=== PATIENT | female | born 1950 | race Caucasian/White ===

== ENCOUNTER 2018-02-17 17:34 | Emergency (ER) | payer MEDICARE, OTHER ==
[~2018-02-17] VITALS: Ht 167.6 cm; Wt 77.0 kg
[2018-02-17 17:52] VITALS: BP 135/64; PULSE 85; RESP 15; TEMP 98.2; O2SAT 97
--- NOTE | 2018-02-17 20:23 | PD ---
HPI Chief Complaint: GI Complaint Time Seen by Provider: 20:08 Travel History International Travel<30 days: No Contact w/Intl Traveler<30days: No Traveled to known affect area: No History of Present Illness HPI This is a 67-year-old female with history of diabetes, hypertension, hyperlipidemia, depression and anxiety. She presents for evaluation of constipation. She reports over the past few weeks she has been having small pebbly stools. She discussed this with her primary care physician 10 days ago who recommended increased exercise, fluid intake and [id number] stool softeners. She did not try using anything [id number] but she reports that over the past 10 days she has not had any bowel movements. She called her primary care physician and was referred here. She has been passing stool. She reports that she feels perfectly fine. She denies abdominal pain, nausea or vomiting, fevers or chills, night sweats, recent weight loss. She denies any recent medication changes. She is not on any opiate medications. She reports that she had a colonoscopy 5 years ago which was normal. She has no other complaints at this time. [facility] Social History Alcohol Use: No Tobacco Use: No Allergies-Medications (Allergen,Severity, Reaction): Coded Allergies: Tetracyclines (Verified Allergy, Severe, RASH , 02/17/18) Reported Meds & Prescriptions Reported Meds & Active Scripts Active Colace (Docusate Sodium) 100 Mg Capsule 100 Mg PO BID Magnesium Citrate Liq (Magnesium Citrate) 300 Ml Liq 300 Ml PO DIRECTED 1 Days Review of Systems Except as stated in HPI: all other systems reviewed are Neg Physical Exam Narrative GENERAL: Pleasant well-developed well-nourished female in no acute distress vital signs reviewed. SKIN: Warm and dry. HEAD: Atraumatic. Normocephalic. EYES: Pupils equal and round. No scleral icterus. No injection or drainage. ENT: No nasal bleeding or discharge. Mucous membranes pink and moist. NECK: Trachea midline. No JVD. CARDIOVASCULAR: Regular rate and rhythm. No murmur appreciated. RESPIRATORY: No accessory muscle use. Clear to auscultation. Breath sounds equal bilaterally. GASTROINTESTINAL: Abdomen soft, non-tender, nondistended. Bowel sounds audible in all 4 quadrants. Rectal examination reveals dried stool in the rectal vault which was digitally broken up. hepatic and splenic margins not palpable. MUSCULOSKELETAL: No obvious deformities. No clubbing. No cyanosis. No edema. NEUROLOGICAL: Awake and alert. No obvious cranial nerve deficits. Motor grossly within normal limits. Normal speech. Data Data Last Documented VS Vital Signs Date Time Temp Pulse Resp B/P (MAP) Pulse Ox O2 Delivery O2 Flow Rate FiO2 02/17/18 17:52 98.2 85 15 135/64 (87) 97 Orders Orders Fleets Enema PRN (02/17/18 20:18) Fleets Enema (Adult) (Fleets Enema (Adul (02/17/18 21:15) Ed Discharge Order (02/17/18 22:06) [facility] Medical Decision Making Medical Screen Exam Complete: Yes Emergency Medical Condition: Yes Medical Record Reviewed: Yes Differential Diagnosis Constipation, fecal impaction, mass, obstruction Narrative Course 67-year-old female who reports constipation for the past several days with no other symptoms. She reports that she feels fine. Her abdomen is soft and nontender. She has no clinical evidence of bowel obstruction. Reassuringly she reports that she had a normal colonoscopy 5 years ago with no evidence of polyp or malignancy. On examination she has some fecal impaction which was digitally broken up. Plan is to write her an enema here. Upon reexamination the patient reports that she had a large bowel movement and feels improved. She will be discharged with a prescription for dose of magnesium citrate as well as a several day supply of Colace. Recommended follow -up with primary care physician and gastroenterology referral, return for any acutely new or worsening symptoms. Diagnosis Primary Impression: Constipation Additional Impression: Fecal impaction Referrals: Damage Assessor Additional Instructions: Medication as prescribed. Increase fiber intake as well as fluid intake, increase aerobic exercise. Follow-up with a master tax advisor. Return for any acutely new or worsening symptoms such as abdominal pain, intractable nausea and vomiting, fevers. Med/Other Pt SpecificInfo: Prescription(s) given Scripts Docusate Sodium (Colace) 100 Mg Capsule 100 MG PO BID for Prevent Constipation, #60 CAP 0 Refills Prov: Sonia Rodríguez MD 02/17/18 Magnesium Citrate Liq (Magnesium Citrate Liq) 300 Ml Liq 300 ML PO DIRECTED for 1 Day, BOTTLE 0 Refills Prov: oSnia Rodríguez MD 3/29/18 Disposition: 01 DISCHARGE HOME Condition: Stable Natanael,Damon P. PA Feb 17, 2018 20:23
[2018-02-17] MEDS ORDERED: SOD PHOSPHATE/SOD BIPHOSPHATE (ADULT) ENEMA 133ML RECTAL ONE (21:15)
[2018-02-17] MEDS ORDERED: MAGNSOL2 PO (22:05)
[2018-02-17] MEDS ORDERED: COLA100C5 PO (22:05)
[2018-02-17 22:52] VITALS: BP 127/74; PULSE 78; RESP 18; O2SAT 99
== END 2018-02-17 22:53 | disposition home or self-care (01) ==
LOC: NEPD 17:34
DX: K59.00 Constipation, unspecified (principal); E11.9 Type 2 diabetes mellitus without complications; I10 Essential (primary) hypertension; E78.5 Hyperlipidemia, unspecified; F32.9 Major depressive disorder, single episode, unspecified; F41.9 Anxiety disorder, unspecified
CPT/HCPCS: 99284

== ENCOUNTER 2018-05-30 17:03 | Inpatient (IN) ==
--- NOTE | 2018-05-30 17:33 | ED ---
HPI General Chief Complaint: Psychiatric Symptoms Stated Complaint: Psych Eval / SDPD Time Seen by Provider: 05/30/18 17:24 History of Present Illness HPI Narrative: Patient comes emergency department under Lombardi act by police reports suicidal ideations. Patient admits to having thoughts of wanting to kill herself. States that she was going to do by stabbing herself in the stomach with a knife. Patient denies any history of previous suicide attempts. Patient denies any medical complaints at this time. There are no modifying factors. Denies any chest pain, shortness of breath, loss change of bowel bladder, or fevers. Related Data Home Medications Medication Instructions Recorded Confirmed Crestor 20 mg PO HS 05/24/18 05/27/18 Ditropan XL 5 mg PO BID 05/24/18 05/27/18 Glucophage 500 mg PO DAILY 05/24/18 05/27/18 Lopressor 12.5 mg PO BID 05/24/18 05/27/18 Wellbutrin XL 300 mg PO DAILY 05/24/18 05/27/18 Zoloft 50 mg PO DAILY 05/24/18 05/27/18 hydroxyzine HCl 10 mg PO BID PRN 05/24/18 05/27/18 Allergies Allergy/AdvReac Type Severity Reaction Status Date / Time Tetracyclines Allergy Severe RASH Verified 02/17/18 17:52 Review of Systems Except as stated in HPI: all other systems reviewed are negative PMFSH Social History Social History Substance History: No History of Abuse Second Hand Smoke Exposure: No Smoking Status: Former smoker Tobacco Type: Cigarettes How Often Do You Have a Drink Containing Alcohol: Monthly or less Recent Travel in [facility] within the Last 8 Weeks: No Recent Out of Country Travel within the Last 8 Weeks: No Exam Narrative Exam Narrative: GENERAL: Well-developed, overly nourished, in no acute distress , and non-ill appearing. SKIN: Focused skin assessment warm and dry. HEAD: Atraumatic. Normocephalic. EYES: Pupils equal and round. EOMI. No scleral icterus. No injection or drainage. ENT: No nasal bleeding or discharge. Mucous membranes pink and moist. NECK: Trachea midline. Supple. No nuclear rigidity. CARDIOVASCULAR: Regular rate and rhythm. No murmur appreciated. RESPIRATORY: No accessory muscle use. No respiratory distress. Clear to auscultation. Breath sounds equal bilaterally. MUSCULOSKELETAL: No obvious deformities. No clubbing. No cyanosis. No edema. Full range of motion. NEUROLOGICAL: Awake and alert. No obvious cranial nerve deficits. Motor grossly within normal limits. Normal speech. PSYCHIATRIC: Appropriate mood and affect; insight and judgment normal. Course Initial Documented Vital Signs Temperature 97.7 F 05/30/18 17:13 Pulse Rate 103 H 05/30/18 17:13 Respiratory Rate 18 05/30/18 17:13 Blood Pressure 138/89 05/30/18 17:13 Pulse Oximetry 97 05/30/18 17:13 Last Documented Vital Signs Temperature 97.7 F 05/30/18 17:57 Pulse Rate 103 H 05/30/18 17:57 Respiratory Rate 17 05/30/18 17:57 Blood Pressure 138/89 05/30/18 17:13 Pulse Oximetry 97 05/30/18 17:57 Sign Out Sign Out Data: Patient Sign Out occurred on 05/30/18 at 19:01. Patient's care was discussed, and care was transferred from NUVIA Marin to NUVIA John. Sign Out Comment: Patient signed out to Alexander Santoyo are pending labs Last updated by Wali Root PA at 05/30/18 18:59 Post-Handoff Eval: See previous providers notes for complete history of present illness. I was asked to follow-up in this patient's lab work for medical clearance for psychiatric evaluation. Her lab work is unremarkable. She is medically cleared for psychiatric disposition. Medical Decision Making Lab Data Result diagrams: 05/30/18 17:17 05/30/18 17:17 Lab Results 05/30/18 05/30/18 05/30/18 Range/Units 17:17 17:17 17:17 WBC 8.5 (4.0-11.0) th/mm3 RBC 5.05 (4.00-5.30) mil/mm3 Hgb 14.7 (11.6-15.3) gm/dL Hct 43.1 (35.0-46.0) % MCV 85.4 (80.0-100.0) fL MCH 29.2 (27.0-34.0) pg MCHC 34.2 (32.0-36.0) % RDW 13.8 (11.6-17.2) % Plt Count 321 (150-450) th/mm3 MPV 7.8 (7.0-11.0) fL Neut % (Auto) 66.9 (16.0-70.0) % Lymph % (Auto) 22.7 (9.0-44.0) % [place] % (Auto) 7.0 (0.0-8.0) % Eos % (Auto) 2.8 (0.0-4.0) % Baso % (Auto) 0.6 (0.0-2.0) % Neut # (Auto) 5.7 (1.8-7.7) th/mm3 Lymph # (Auto) 1.9 (1.0-4.8) th/mm3 [place] # (Auto) 0.6 (0.0-0.9) th/mm3 Eos # (Auto) 0.2 (0.0-0.4) th/mm3 Baso # (Auto) 0.1 (0.0-0.2) th/mm3 WBC Differential . Differential Comment Auto diff final Sodium 137 (136-145) meq/L Potassium 4.0 (3.5-5.1) meq/L Chloride 104 (98-107) meq/L Carbon Dioxide 19.6 L (21.0-32.0) meq/L Anion Gap 13 (5-15) meq/L BUN 17 (7-18) mg/dL Creatinine 0.95 (0.50-1.00) mg/dL Estimated GFR 58 L (>89) mL/min Random Glucose 113 H (74-106) mg/dL Calcium 9.8 (8.5-10.1) mg/dL Total Bilirubin 0.8 (0.2-1.0) mg/dL AST 14 L (15-37) U/L ALT 22 (10-53) U/L Alkaline Phosphatase 101 (45-117) U/L Total Protein 8.1 (6.4-8.2) g/dL Albumin 4.3 (3.4-5.0) g/dL TSH 2.010 (0.358-3.740) uIU/mL Salicylates Less than 1.7 L (2.8-20.0) mg/dL Acetaminophen Less than 2.0 L (10.0-30.0) mcg/mL Serum Alcohol Less than 3 (0-5) mg/dL Discharge Plan Discharge Disposition Patient Disposition: 30 Still Patient Discharge Condition Condition: Stable Discharge Details Discharge Problem: Medical clearance for psychiatric admission Physicians Team ED Provider: Beto Helms ED Midlevel Provider: Damon Santoyo Primary Care Provider: UNKNOWN, Rxs /Orders / Referrals /Forms Prescriptions: No Action Glucophage 500 mg PO DAILY RF: 0 Lopressor 12.5 mg PO BID RF: 0 Zoloft 50 mg PO DAILY RF: 0 Ditropan XL 5 mg PO BID RF: 0 Crestor 20 mg PO HS RF: 0 Wellbutrin XL 300 mg PO DAILY RF: 0 hydroxyzine HCl 10 mg PO BID PRN (Reason: Anxiety) RF: 0 Discharge Interventions Interventions: Vital Signs Last Done: 05/30/18 17:57 Status ED Status: Medically Cleared
[2018-05-30 18:11] LABS: Baso # (Auto) 0.1 th/mm3 (0.0-0.2); Baso % (Auto) 0.6 % (0.0-2.0); Eos # (Auto) 0.2 th/mm3 (0.0-0.4); Eos % (Auto) 2.8 % (0.0-4.0); Hematocrit 43.1 % (35.0-46.0); Hemoglobin 14.7 gm/dL (11.6-15.3); Lymph # (Auto) 1.9 th/mm3 (1.0-4.8); Lymph % (Auto) 22.7 % (9.0-44.0); Mean Corpuscular HGB Conc 34.2 % (32.0-36.0); Mean Corpuscular Hemoglobin 29.2 pg (27.0-34.0); Mean Corpuscular Volume 85.4 fL (80.0-100.0); Mean Platelet Volume 7.8 fL (7.0-11.0); Mono # (Auto) 0.6 th/mm3 (0.0-0.9); Neut # (Auto) 5.7 th/mm3 (1.8-7.7); Neut % (Auto) 66.9 % (16.0-70.0); Platelet Count 321 th/mm3 (150-450); Red Blood Count 5.05 mil/mm3 (4.00-5.30); Red Cell Distribution Width 13.8 % (11.6-17.2); White Blood Count 8.5 th/mm3 (4.0-11.0)
[2018-05-30 18:26] LABS: Anion Gap 13 meq/L (5-15)
[2018-05-30 18:42] LABS: Alanine Aminotransferase 22 U/L (10-53); Albumin 4.3 g/dL (3.4-5.0); Alkaline Phosphatase 101 U/L (45-117); Aspartate Aminotransferase 14 U/L (15-37); Blood Urea Nitrogen 17 mg/dL (7-18); Calcium 9.8 mg/dL (8.5-10.1); Carbon Dioxide 19.6 meq/L (21.0-32.0); Chloride 104 meq/L (98-107); Glomerular Filtration Rate 58 mL/min (>89); Glucose,Random 113 mg/dL (74-106); Sodium 137 meq/L (136-145); Total Protein 8.1 g/dL (6.4-8.2)
[2018-05-31] MEDS ORDERED: LORazepam 1 MG Tablet PO PRN (15:34)
--- NOTE | 2018-05-31 16:35 | ED ---
HPI - Psych - General Source: family Mode of arrival: ambulatory Limitations: altered mental status - History of Present Illness MD complaint: altered mental status Onset (ago): week(s) Duration: intermittent, getting worse History of same: Yes (Per goddaughter patient had "psychotic episode many years ago".) Relieving factors: none Exacerbating factors: none Context: other (Unable to determine at this time) Associated psychiatric symptoms: suicidal ideation Associated symptoms: confusion Treatments prior to arrival: none If self harm: admits thoughts of self harm, has plan Details of plan: Stated that she was going to "stab herself in the abdomen". - General Chief Complaint: Psychiatric Symptoms Stated Complaint: Psych Eval / SDPD Time Seen by Provider: 05/30/18 17:24 - History of Present Illness HPI Narrative: This is a 68-year-old single, female who presents under Lombardi act to this facility for making suicidal statements. Patient is recently known to the psychiatric department at this facility as this is her third visit in approximately 1 week. Reviewed electronic medical records, labs, discuss case with staff. Evaluation was conducted in patient's room and J pod. She was found lying on the bed with the covers of her head. Patient was awake and alert however, she was either unwilling or unable to answer my questions. She did attempt to communicate briefly but appeared to have word salad. Staff report that she has communicated with them in and organized and logical manner earlier. A DCF worker who had been contacted on behalf of the patient by her landlord showed up at this facility. She states that when she examined the patient's apartment she found medication strewn all over the floor in the apartment was then complete disarray. She was able to identify the patient's goddaughter, came to use [phone], he was able to provide background information and agreed to act as the patient's healthcare surrogate. I contacted Rosa M Boyer who advised that the patient does have a history of schizophrenia and bipolar disorder. She reports that the recently began receiving phone calls from the patient complaining that her landlord had "turned off her water". 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 On both of her previous visits to this hospital she stated that she had a Risperdal prescription awaiting her at the pharmacy but, it seems she was unable to obtain them. She reported to staff that she "could not figure out how to get them". Her goddaughter additionally reported that the patient had a cerebral shunt placed many years ago was questioning if this could be the source of her altered mental status. I have ordered a CT and HEPAS consult. (Edna Hernandez) - Related Data Home Medications Medication Instructions Recorded Confirmed Crestor 20 mg PO HS 05/24/18 05/31/18 Ditropan XL 5 mg PO BID 05/24/18 05/31/18 Glucophage 500 mg PO DAILY 05/24/18 05/31/18 Lopressor 12.5 mg PO BID 05/24/18 05/31/18 Wellbutrin XL 300 mg PO DAILY 05/24/18 05/31/18 Zoloft 50 mg PO DAILY 05/24/18 05/31/18 hydroxyzine HCl 10 mg PO BID PRN 05/24/18 05/31/18 Allergies Allergy/AdvReac Type Severity Reaction Status Date / Time Tetracyclines Allergy Severe RASH Verified 02/17/18 17:52 PMFSH - History History Provided By: Patient, Family Member - Tobacco History Second Hand Smoke Exposure: No Tobacco Use In Past 30 Days: No Smoking Status: Former smoker Tobacco Type: Cigarettes - Alcohol History How Often Do You Have a Drink Containing Alcohol: Monthly or less - Substance Use History Substance History: No History of Abuse - Travel History Recent Travel in the [facility] Within the Last 8 Weeks: No Recent Travel Out of the Country Within the Last 8 Weeks: No - Immunization History Tetanus Immunization: <5 Years Psychiatric History - Psychiatric History Psychiatric Treatment History: History of Psychiatric Treatment, History of Hospitalization in a Psychiatric Facility, History of Community Mental Health Treatment History of Inpatient Treatment: Yes Firearms in Home: No - Legal History Unable to obtain. (Edna Hernandez) - Family Psychiatric History Unable to obtain. (Edna Hernandez) Mental Status Examination Appearance: Disheveled Consciousness: Obtunded Orientation: Person Motor Activity: Other (Lying in bed) Speech: Incoherent Language: Word salad Fund of Knowledge: Poor Attention and Concentration: Inadequate Memory: Impaired Mood: Anxious Affect: Anxious Thought Process & Associations: Word salad Thought Content: Other (Unable to determine) Hallucination Type: Other (Unable to determine) Delusion Type: Other (Unable to determine) Suicidal Ideation: Yes (Per Lombardi act) Suicidal Plan: Yes (Per Lombardi act patient stated with stab her self) Suicidal Intention: No Homicidal Ideation: No Homicidal Plan: No Homicidal Intention: No Insight: Poor Judgment: Poor Initial Documented Vital Signs Temperature 97.7 F 05/30/18 17:13 Pulse Rate 103 H 05/30/18 17:13 Respiratory Rate 18 05/30/18 17:13 Blood Pressure 138/89 05/30/18 17:13 Pulse Oximetry 97 05/30/18 17:13 Last Documented Vital Signs Temperature 98.3 F 05/31/18 06:09 Pulse Rate 68 05/31/18 10:00 Respiratory Rate 20 05/31/18 10:00 Blood Pressure 116/72 05/31/18 10:00 Pulse Oximetry 98 05/31/18 10:00 MDM - Psych - Diagnosis (1) Unspecified psychosis Status: Acute - Lab Data Result diagrams: 05/30/18 17:17 05/30/18 17:17 - MDM Narrative Medical decision making narrative: Given that this is the third time in a week patient has presented to this facility for reported suicidal ideation and given her psychiatric history she will be admitted to the 2500 unit for further evaluation and treatment. Staff reported that patient was interacting with them appropriately and speaking in clear, logical, and organized sentences. However, when I interviewed her she did appear to have some word salad disorganization and to be fairly confused. That was at approximately 3 PM in the afternoon. Additionally, I have ordered a CT to evaluate if patient cerebral shunt may be blocked. She will be admitted to rule out psychosis due to schizophrenia versus dementia versus hydrocephalus. Received consent from her granddaughter to act as her surrogate. I have received consents for her medications. (Edna Hernandez) - Lab Data Lab Results 05/30/18 05/30/18 05/30/18 Range/Units 17:17 17:17 17:17 WBC 8.5 (4.0-11.0) th/mm3 RBC 5.05 (4.00-5.30) mil/mm3 Hgb 14.7 (11.6-15.3) gm/dL Hct 43.1 (35.0-46.0) % MCV 85.4 (80.0-100.0) fL MCH 29.2 (27.0-34.0) pg MCHC 34.2 (32.0-36.0) % RDW 13.8 (11.6-17.2) % Plt Count 321 (150-450) th/mm3 MPV 7.8 (7.0-11.0) fL Neut % (Auto) 66.9 (16.0-70.0) % Lymph % (Auto) 22.7 (9.0-44.0) % [place] % (Auto) 7.0 (0.0-8.0) % Eos % (Auto) 2.8 (0.0-4.0) % Baso % (Auto) 0.6 (0.0-2.0) % Neut # (Auto) 5.7 (1.8-7.7) th/mm3 Lymph # (Auto) 1.9 (1.0-4.8) th/mm3 [place] # (Auto) 0.6 (0.0-0.9) th/mm3 Eos # (Auto) 0.2 (0.0-0.4) th/mm3 Baso # (Auto) 0.1 (0.0-0.2) th/mm3 WBC Differential . Differential Comment Auto diff final Sodium 137 (136-145) meq/L Potassium 4.0 (3.5-5.1) meq/L Chloride 104 (98-107) meq/L Carbon Dioxide 19.6 L (21.0-32.0) meq/L Anion Gap 13 (5-15) meq/L BUN 17 (7-18) mg/dL Creatinine 0.95 (0.50-1.00) mg/dL Estimated GFR 58 L (>89) mL/min POC Glucose (68-110) mg/dl Random Glucose 113 H (74-106) mg/dL Calcium 9.8 (8.5-10.1) mg/dL Total Bilirubin 0.8 (0.2-1.0) mg/dL AST 14 L (15-37) U/L ALT 22 (10-53) U/L Alkaline Phosphatase 101 (45-117) U/L Total Protein 8.1 (6.4-8.2) g/dL Albumin 4.3 (3.4-5.0) g/dL TSH 2.010 (0.358-3.740) uIU/mL Salicylates Less than 1.7 L (2.8-20.0) mg/dL Acetaminophen Less than 2.0 L (10.0-30.0) mcg/mL Serum Alcohol Less than 3 (0-5) mg/dL 05/30/18 05/31/18 Range/Units 21:47 15:34 WBC (4.0-11.0) th/mm3 RBC (4.00-5.30) mil/mm3 Hgb (11.6-15.3) gm/dL Hct (35.0-46.0) % MCV (80.0-100.0) fL MCH (27.0-34.0) pg MCHC (32.0-36.0) % RDW (11.6-17.2) % Plt Count (150-450) th/mm3 MPV (7.0-11.0) fL Neut % (Auto) (16.0-70.0) % Lymph % (Auto) (9.0-44.0) % [place] % (Auto) (0.0-8.0) % Eos % (Auto) (0.0-4.0) % Baso % (Auto) (0.0-2.0) % Neut # (Auto) (1.8-7.7) th/mm3 Lymph # (Auto) (1.0-4.8) th/mm3 [place] # (Auto) (0.0-0.9) th/mm3 Eos # (Auto) (0.0-0.4) th/mm3 Baso # (Auto) (0.0-0.2) th/mm3 WBC Differential Differential Comment Sodium (136-145) meq/L Potassium (3.5-5.1) meq/L Chloride (98-107) meq/L Carbon Dioxide (21.0-32.0) meq/L Anion Gap (5-15) meq/L BUN (7-18) mg/dL Creatinine (0.50-1.00) mg/dL Estimated GFR (>89) mL/min POC Glucose 99 84 (68-110) mg/dl Random Glucose (74-106) mg/dL Calcium (8.5-10.1) mg/dL Total Bilirubin (0.2-1.0) mg/dL AST (15-37) U/L ALT (10-53) U/L Alkaline Phosphatase (45-117) U/L Total Protein (6.4-8.2) g/dL Albumin (3.4-5.0) g/dL TSH (0.358-3.740) uIU/mL Salicylates (2.8-20.0) mg/dL Acetaminophen (10.0-30.0) mcg/mL Serum Alcohol (0-5) mg/dL
--- NOTE | 2018-05-31 17:30 | CT ---
EXAM DATE: 05/31/2018 5:22 PM EDT AGE/SEX: 68 years / Female INDICATIONS: Altered mental status; depression. Possible shunt malfunction; evaluate for hydrocepha chris. CLINICAL DATA: This is the patient's initial encounter. Patient reports that signs and symptoms have been present for 1 day and indicates a pain score of 0/10. MEDICAL/SURGICAL HISTORY: None. . AV shunt RADIATION DOSE: 56.35 CTDI (mGy) COMPARISON: No prior exams available for comparison. TECHNIQUE: CT of the head without contrast. Using automated exposure control and adjustment of the mA and/or kV according to patient size, radiation dose was kept as low as reasonably achievable to ob tain optimal diagnostic quality images. DICOM format image data is available electronically for revi ew and comparison. FINDINGS: Cerebrum: Mild ventricular prominence. A ventricular shunt enters from the right with tip in the lef t lateral ventricle. Periventricular areas of diminished attenuation. Probable punctate old lacunar t ype infarcts in the basal ganglia bilaterally. No evidence of midline shift, mass lesion, hemorrhage or acute infarction. No extraaxial fluid collections are seen. Posterior Fossa: The cerebellum and brainstem are intact. The 4th ventricle is midline. The cerebe llopontine angle is unremarkable. Extracranial: The visualized portion of the orbits is intact. Skull: The calvaria is intact. No evidence of skull fracture. CONCLUSION: 1. Right-sided LOGISTICS TE[employer] LEAD shunt with the tip in the left lateral ventricle. Mild ventricular prominence. I h ave no priors to assess for interval change, however. 2. Chronic changes with moderately severe periventricular small vessel ischemic demyelination. Proba ble punctate old lacunar type infarcts in the basal ganglia bilaterally. Electronically signed by: Rigo Shultz MD 05/31/2018 5:29 PM EDT
[2018-05-31] MEDS ORDERED: CRESTOR 20 MG PO SCH (21:00)
[2018-05-31] MEDS ORDERED: METOPROLOL TARTRATE PO SCH (21:00)
[2018-05-31] MEDS ORDERED: DITROPAN 5 MG PO SCH (21:00)
[2018-05-31] MEDS: Metoprolol Tartrate 25 MG Tablet PO SCH (23:37)
[2018-06-01] MEDS: Tolterodine Tartrate LA 2 MG Capsule PO SCH ×2 (03:51→10:57)
[2018-06-01 07:15] LABS: Calcium 9.6 mg/dL (8.5-10.1); Carbon Dioxide 20.9 meq/L (21.0-32.0); Potassium 3.8 meq/L (3.5-5.1)
[2018-06-01 07:18] LABS: Chol/HDL Ratio 2.98 Ratio; HDL Cholesterol 46.5 mg/dL (40.0-60.0)
[2018-06-01] MEDS: Metoprolol Tartrate 25 MG Tablet PO SCH (10:56)
[2018-06-01] MEDS: Sertraline 50 MG Tablet PO SCH (10:56)
[2018-06-01] MEDS: buPROPion 150 MG 12 HR Tablet PO SCH (10:57)
--- NOTE | 2018-06-01 14:06 | ECG ---
Date Performed: 06/01/2018 Time Performed: 10:15:08 PTAGE: 68 years EKG: Sinus rhythm NONSPECIFIC T-WAVE ABNORMALITY BORDERLINE ECG NO PREVIOUS TRACING DOCTOR: Juan Luis Williamson Interpretating Date/Time 06/01/2018 14:05:10
--- NOTE | 2018-06-01 14:48 | P.CON ---
History of Present Illness Service: 06/01/18 Consult date: 05/31/18 Requesting Physician: Edna Hernandez Reason for Consult: AMS, Hx cerebral shunt, DM, HTN Primary Care Provider: UNKNOWN History of Present Illness: 68-year-old female with past medical history significant for hypertension, hyperlipidemia, diabetes mellitus, history of FOOD SERVICE LEAD shunt placement, anxiety and depression who presents to the emergency department on 05/30 under [place] act. Apparently this is patient's third visit in the past week, DCF worker who examined patient's apartment found this in disarray along with multiple medications on the floor. During patient's previous hospital visit she was prescribed Risperdal which she was unable to obtain from this pharmacy per medical records, patient reported that she could not figure out how to get there. Patient's goddaughter who is serving as healthcare surrogate reports patient has a history of FOOD SERVICE LEAD shunt placement and is questioning if this could be the possible cause of her altered mental status. [facility] consulted to assist with further evaluation of altered mental status, hypertension, and diabetes. Patient is seen and examined in her room, able to ambulate with steady gait and without assistive devices. She is awake, alert, oriented to self, place, time, and current president. She denies any headache, dizziness, lightheadedness, changes in vision, dysuria, or incontinence. Patient also denies any recent fevers, chills, nausea, vomiting, diarrhea, constipation, cough, shortness of breath, or chest pain. Patient does make conversation, but this does not seem to makes make much sense. Reports that she is "fine and everyone knows what is going on" [facility] - History History Provided By: Medical Record - Medical History Medical History: Medical History (Last Updated 06/01/18 @ 15:00 by Payton Hillman) Anxiety Depression Diabetes mellitus HLD (hyperlipidemia) HTN (hypertension) - Surgical History Surgical History: Surgical History (Last Updated 06/01/18 @ 14:58 by Payton Hillman) Hx of tonsillectomy S/P FOOD SERVICE LEAD shunt - Tobacco History Second Hand Smoke Exposure: No Tobacco Use In Past 30 Days: No Smoking Status: Refused to answer Tobacco Type: Cigarettes - Alcohol History How Often Do You Have a Drink Containing Alcohol: Unable to Obtain - Substance Use Type Other Type: tobacco use/former smoker Alcohol Frequency: monthly or less - Travel History Recent Travel in the [facility] Within the Last 8 Weeks: No Recent Travel Out of the Country Within the Last 8 Weeks: No - Immunization History Tetanus Immunization: <5 Years Hx Influenza Vaccine This Season: Unable to Assess Medications and Allergies Active Medications: Active Medications Atorvastatin Calcium (Lipitor) 40 mg PO HS [facility] Last Admin: 05/31/18 23:38 Dose: 40 mg Bupropion HCl (Wellbutrin Sr) 150 mg PO BID [facility] Last Admin: 06/01/18 10:57 Dose: 150 mg Diphenhydramine HCl (Benadryl) 50 mg PO HS PRN PRN Reason: INSOMNIA Lorazepam (Ativan) 0.5 mg PO Q12HR PRN PRN Reason: ANXIETY AND/OR AGITATION Lorazepam (Ativan Inj) 0.5 mg IM Q12H PRN PRN Reason: MODERATE TO SEVERE ANXIETY Metformin HCl (Glucophage) 500 mg PO DAILY [facility] Last Admin: 06/01/18 10:58 Dose: 500 mg Metoprolol Tartrate (Lopressor) 12.5 mg PO BID [facility] Last Admin: 06/01/18 10:56 Dose: 12.5 mg Miscellaneous (Pill Splitter) 1 each OTHER PRN PRN PRN Reason: SEE LABEL COMMENTS Risperidone (Risperdal) 0.5 mg PO BID [facility] Last Admin: 06/01/18 13:43 Dose: 0.5 mg Sertraline HCl (Zoloft) 50 mg PO DAILY [facility] Last Admin: 06/01/18 10:56 Dose: 50 mg Tolterodine Tartrate (Detrol La) 2 mg PO BID [facility] Last Admin: 06/01/18 10:57 Dose: 2 mg Allergies Allergy/AdvReac Type Severity Reaction Status Date / Time Tetracyclines Allergy Severe RASH Verified 02/17/18 17:52 Home Medications Medication Instructions Recorded Confirmed Type Crestor 20 mg PO HS 05/24/18 05/31/18 History Ditropan XL 5 mg PO BID 05/24/18 05/31/18 History Glucophage 500 mg PO DAILY 05/24/18 05/31/18 History Lopressor 12.5 mg PO BID 05/24/18 05/31/18 History Wellbutrin XL 300 mg PO DAILY 05/24/18 05/31/18 History Zoloft 50 mg PO DAILY 05/24/18 05/31/18 History hydroxyzine HCl 10 mg PO BID PRN 05/24/18 05/31/18 History Physical Exam Vital signs: Vital Signs 05/31/18 19:00 06/01/18 03:02 06/01/18 06:00 Temperature 36.9 C 36.8 C Pulse Rate 71 74 Respiratory Rate 18 Blood Pressure 145/95 H 102/61 108/62 Pulse Oximetry 97 94 L 93 L Intake & Output 05/31/18 06/01/18 06/01/18 18:59 06:59 18:59 Weight 170 kg Other: Weight On Admission 170 kg Narrative: GENERAL: Elderly female, well developed, in no acute distress, resting in bed. SKIN: Warm and dry. HEAD: Atraumatic. Normocephalic. EYES: Pupils equal and round. No scleral icterus. No injection or drainage. ENT: No nasal bleeding or discharge. Mucous membranes pink and moist. NECK: Trachea midline. CARDIOVASCULAR: Regular rate and rhythm. RESPIRATORY: No accessory muscle use. Clear to auscultation. Breath sounds equal bilaterally. GASTROINTESTINAL: Abdomen soft, non-tender, nondistended. + bowel sounds. MUSCULOSKELETAL: Extremities without clubbing, cyanosis, or edema. No obvious deformities. NEUROLOGICAL: Awake and alert, oriented to self, place. No obvious cranial nerve deficits. Motor grossly within normal limits. Clear speech, few spoke words with ongoing scattered thoughts. PSYCHIATRIC: Questionable insight and judgment. Assessment and Plan - Plan 68-year-old female with past medical history significant for hypertension, hyperlipidemia, diabetes mellitus, history of FOOD SERVICE LEAD shunt placement, anxiety and depression who presents to the emergency department on 05/30 under [place] act. Patient has a history of FOOD SERVICE LEAD shunt placement and is questioning if this could be the possible cause of her altered mental status. [facility] consulted to assist with further evaluation of altered mental status, hypertension, and diabetes. AMS/confusion -Labs unremarkable, CBC and CMP stable, toxicology screen negative. - Head CT with right sided FOOD SERVICE LEAD shunt with the tip in the left lateral ventricle. Mild ventricular prominence with no priors to assess for changes. Chronic changes with moderately severe periventricular small vessel ischemic demyelination. Probable punctate old lacunar type infarcts in the basal ganglia bilaterally. - Check B12, folate, UA for possible possible source of AMS Hx DM Hx HTN HLD -Random blood sugars on lab work have been stable, pending hemoglobin A1c. Continue metformin 500 mg daily. -Continue Lopressor 12.5 mg twice daily -Continue Lipitor 40 mg at bedtime DVT prophylaxis-ambulation Thank you kindly for this consultation, will continue to follow along.
[2018-06-01 16:54] LABS: Hemoglobin A1c 6.4 % (4.3-6.0)
--- NOTE | 2018-06-01 17:54 | P.HPPSY ---
Provisional Diagnosis Admission Date: May 31, 2018 15:39 Lares I.: Major depressive disorder, recurrent episode, severe with psychotic features Competence Certification of Person's Competence To Provide Express and Informed Consent I have personally examined Elmira Good, a person being served at [facility] on, June 01, 2018 1742. Express and informed consent means consent voluntarily given in writing, by a competent person, after sufficient explanation and disclosure of the subject matter involved to enable the person to make a knowing and willful decision without any element of force, fraud, deceit, duress, or other form of constraint or coercion. This person is 18 years of age or older, is not now known to be incompetent to consent to treatment with a guardian advocate, and does not have a health care surrogate or proxy currently making medical treatment decisions. I have found this person to be one of the following: [] Competent to provide express and informed consent, as defined above, for voluntary admission to this facility and is competent to provide express and informed consent for treatment. He/she has the consistent capacity to make well reasoned, willful, and knowing decisions concerning his or her medical or mental health treatment. The person fully and consistently understands the purpose of the admission for examination/placement and is fully capable of personally exercising all rights assured [place]xxx] Incompetent to provide express and informed consent to voluntary admission , and this is incompetent to provide express and informed consent to treatment. The person must be transferred to involuntary status and a petition for a guardian advocate filed with the Circuit Court. [] Refusing to provide express and informed consent to voluntary admission but is competent to provide express and informed consent for treatment. The person must be discharged or transferred to involuntary status. Form shall be completed within 24 hours of a person's arrival at the receiving facility and filed in the clinical record of each person: 1. Admitted on a voluntary basis 2. Permitted to provide express and informed consent to his/her own treatment 3. Allowed to transfer from involuntary to voluntary status 4. Prior to permitting a person to consent to his or her own treatment after having been previously found incompetent to consent to treatment. History of Present Illness Capacity: Lacks capacity History of Present Illness: Patient is a 68-year-old woman, domiciled alone, with a past psychiatric history of depression and anxiety, schizophrenia as per collateral formation, unclear previous psychiatric admissions, denies any previous suicide attempts, who presented to the ED under [facility] for suicide ideations. As per chart patient had visited the ED in 3 separate occasions within 1 week span and recently had her brought in under [facility] after DCF worker have been [facility] had patient come into the hospital for evaluation. As per chart patient with history of schizophrenia/bipolar disorder , had not been able to parts picker her prescriptions at the pharmacy for risperidone as prescribed by her outpatient physician. Patient has history of cervical shunt, recent CT scan showed right CHIEF CRNA shunt, chronic changes with moderately severe periventricular small vessel ischemic demyelination, probable punctate old lacunar type infarcts in basal ganglia bilaterally. Patient was found sitting in hospital bed noted to be having difficulty with engaging interview noted to be distressed and paranoid. Patient states that after she had been seen in the ER she had planned to go to her psychiatrist but had a transportation which she had called her cousin stated that she did not feel well. Patient this time is alert and oriented 3, and states "whatever I say some negative, it heads me in the face". Patient also states that "negativity always follows me". Patient continues report feeling depressed as well as noted to be paranoid stating "I have been labeled", "just kill me, just kill me! " Patient was not able to tolerate further review at history had been limited due to patient's ongoing symptomatology. - Inpatient Certification I certify that the inpatient services were ordered in accordance with Medicare regulations governing the order. This includes certification that hospital inpatient services are reasonable and necessary and in the case of services not specified as inpatient-only under 42 CFR 419.22(n), that they are appropriately provided as inpatient services in accordance to with the 2-midnight benchmark under 43 CFR 412.3(e) I certify that inpatient psychiatric hospital services are medically necessary. Evaluation and treatment and/or diagnostic testing are expected to improve the patient's condition. The patient needs on a daily basis, active treatment furnished directly by or requiring the supervision of inpatient psychiatric facility personnel. Estimated Total Length of Stay (Days): 7 Plans for Post Hospital Care: Not yet determined Review of Systems All other systems reviewed negative except as stated in [facility] - History History Provided By: Medical Record - Medical History Medical History: Medical History (Last Updated 07/11/18 @ 15:00 by Payton Hillman) Anxiety Depression Diabetes mellitus HLD (hyperlipidemia) HTN (hypertension) - Surgical History Surgical History: Surgical History (Last Updated 06/01/18 @ 14:58 by Payton Hillman) Hx of tonsillectomy S/P CHIEF CRNA shunt - Tobacco History Second Hand Smoke Exposure: No Tobacco Use In Past 30 Days: No Smoking Status: Refused to answer Tobacco Type: Cigarettes - Alcohol History How Often Do You Have a Drink Containing Alcohol: Unable to Obtain - Substance Use Type Other Type: tobacco use/former smoker Route Used: Inhalation Alcohol Route Used: By Mouth Frequency: monthly or less - Travel History Recent Travel in the [place] Within the Last 8 Weeks: No Recent Travel Out of the Country Within the Last 8 Weeks: No - Immunization History Tetanus Immunization: <5 Years Hx Influenza Vaccine This Season: Unable to Assess Quality Measures - Psychiatric History Violence risk to others in the last 6 months: Low Violence risk to self in the last 6 months: Elevated due to current suicidal ideations - Substance Abuse History Drug or alcohol use in the past 12 months: Denies - Patient Strengths Patient's strengths (minimum of 2): Verbal and communicative Medications and Allergies Active Medications: Active Medications Atorvastatin Calcium (Lipitor) 40 mg PO HS [facility] Last Admin: 05/31/18 23:38 Dose: 40 mg Bupropion HCl (Wellbutrin Sr) 150 mg PO BID [facility] Last Admin: 06/01/18 10:57 Dose: 150 mg Diphenhydramine HCl (Benadryl) 50 mg PO HS PRN PRN Reason: INSOMNIA Lorazepam (Ativan) 0.5 mg PO Q12HR PRN PRN Reason: ANXIETY AND/OR AGITATION Lorazepam (Ativan Inj) 0.5 mg IM Q12H PRN PRN Reason: MODERATE TO SEVERE ANXIETY Metformin HCl (Glucophage) 500 mg PO DAILY [facility] Last Admin: 06/01/18 10:58 Dose: 500 mg Metoprolol Tartrate (Lopressor) 12.5 mg PO BID [facility] Last Admin: 06/01/18 10:56 Dose: 12.5 mg Miscellaneous (Pill Splitter) 1 each OTHER PRN PRN PRN Reason: SEE LABEL COMMENTS Risperidone (Risperdal) 0.5 mg PO BID [facility] Last Admin: 06/01/18 13:43 Dose: 0.5 mg Sertraline HCl (Zoloft) 50 mg PO DAILY [facility] Last Admin: 06/01/18 10:56 Dose: 50 mg Tolterodine Tartrate (Detrol La) 2 mg PO BID [facility] Last Admin: 06/01/18 10:57 Dose: 2 mg Allergies Allergy/AdvReac Type Severity Reaction Status Date / Time Tetracyclines Allergy Severe RASH Verified 02/17/18 17:52 Home Medications Medication Instructions Recorded Confirmed Type Crestor 20 mg PO HS 05/24/18 05/31/18 History Ditropan XL 5 mg PO BID 05/24/18 05/31/18 History Glucophage 500 mg PO DAILY 05/24/18 05/31/18 History Lopressor 12.5 mg PO BID 05/24/18 05/31/18 History Wellbutrin XL 300 mg PO DAILY 05/24/18 05/31/18 History Zoloft 50 mg PO DAILY 05/24/18 05/31/18 History hydroxyzine HCl 10 mg PO BID PRN 05/24/18 05/31/18 History Results - Labs CBC & Chem 7: 05/30/18 17:17 06/01/18 06:25 Labs: Laboratory Results - last 24 hr 06/01/18 06:25 Sodium 139 Potassium 3.8 Chloride 105 Carbon Dioxide 20.9 L Anion Gap 13 BUN 22 H Creatinine 0.83 Estimated GFR 68 L Random Glucose 75 Calcium 9.6 Triglycerides 107 Cholesterol 139 LDL Cholesterol, Calc 71 HDL Cholesterol 46.5 Cholesterol/HDL Ratio 2.98 Exam Vital signs: Vital Signs 05/31/18 19:00 06/01/18 03:02 06/01/18 06:00 Temperature 98.4 F 98.3 F Pulse Rate 71 74 Respiratory Rate 18 18 18 Blood Pressure 145/95 H 102/61 108/62 Pulse Oximetry 97 94 L 93 L Intake & Output 05/31/18 06/01/18 06/01/18 18:59 06:59 18:59 Weight 170 kg Other: Weight On Admission 170 kg Narrative: Patient not noted to be in acute distress, no gross motor abnormalities, no tremors or EPS, no noted psychomotor retardation or agitation Mental Status Examination Appearance: Disheveled Consciousness: Highly distractible Orientation: Person Motor Activity: Other (Lying in bed) Speech: Slow Language: Adequate Fund of Knowledge: Poor Attention and Concentration: Inadequate Memory: Impaired Mood: Anxious Affect: Sad, Anxious Thought Process & Associations: Disorganized (At times) Thought Content: Bizarre thinking, Delusional Hallucination Type: Auditory (Patient had a confirmed nor denied) Delusion Type: Paranoid, Other (Unable to determine) Suicidal Ideation: Yes Suicidal Plan: No Suicidal Intention: No Homicidal Ideation: No Homicidal Plan: No Homicidal Intention: No Insight: Poor Judgment: Poor Assessment and Plan - Assessment (1) Major depressive disorder Code(s): F32.9 - Major depressive disorder, single episode, unspecified Status : Acute - Plan Plan: Estimated LOS: [] days Patient is a 68-year-old woman who carries a diagnosis of depression and anxiety, schizophrenia as per collateral, with unclear previous psychiatric admissions, no previous suicide attempts, no substance use history, currently under the care of Dr. Barajas outpatient psychiatrist, who presented to the ED 3 separate times in 1 week and currently under [place] act for suicide ideations which patient at this time continues to endorse as well as paranoid delusions which patient this time requires inpatient psychiatric stabilization and for safety. Patient will restart risperidone at 0.5 mg p.o. twice daily, continue Wellbutrin 150 mg p.o. twice daily and sertraline 50 mg p.o. daily. Continue recommendations as per primary medical team, hospitalist input appreciated. Social work intervention for psychosocial assessment. Continue to monitor mood and behavior. Petition for involuntary hospitalization started, we will request healthcare surrogate and guardian advocate. Discharge planning in progress. Justification for Continued Inpatient Stay: At risk for decompensation at lower level of care. (1) Major depressive disorder Qualifiers: Major depression recurrence: recurrent Active/Remission status: currently active Major depression episode severity: severe Psychotic features: with psychotic features Qualified Code(s): F33.3 - Major depressive disorder, recurrent, severe with psychotic symptoms
[2018-06-02] MEDS: LORazepam 0.5 MG Tablet PO PRN (02:23)
[2018-06-02] MEDS: Tolterodine Tartrate LA 2 MG Capsule PO SCH ×2 (09:26→23:00)
[2018-06-02] MEDS: Sertraline 50 MG Tablet PO SCH (09:27)
[2018-06-02] MEDS: buPROPion 150 MG 12 HR Tablet PO SCH ×2 (09:27→22:59)
[2018-06-02] MEDS: Metoprolol Tartrate 25 MG Tablet PO SCH ×2 (09:30→23:00)
--- NOTE | 2018-06-02 14:25 | P.CONPSY ---
Provisional Diagnosis Admission Date: May 31, 2018 15:39 Rudyard I.: Major depressive disorder, recurrent episode, severe with psychotic features History of Present Illness Service: Psychiatry Primary Care Provider: UNKNOWN History of Present Illness: THe patient this time patient is a 68-year-old woman, domiciled alone , with a past psychiatric history of depression and anxiety, with no previous suicide attempts admitted in psychiatry under the care of Dr. Morse due to paranoia and perceptual disturbances. Consulted to me for second opinion. On my psychiatric evaluation I find a patient that is calm, superficially cooperative, reporting that she is feeling much better. Patient is unable to tell me what is the reason she is in the hospital. She seems to be a little bit disorganized, internally preoccupied and paranoid, but she denies suicidal and homicidal ideation, denies visual and auditory hallucinations. The patient seems to be quite disoriented. Oriented in person, but partially oriented in time and place. 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 - Tobacco History Second Hand Smoke Exposure: No Tobacco Use In Past 30 Days: No Smoking Status: Refused to answer Tobacco Type: Cigarettes - Alcohol History How Often Do You Have a Drink Containing Alcohol: Unable to Obtain - Substance Use Type Other Type: tobacco use/former smoker Route Used: Inhalation Alcohol Route Used: By Mouth Frequency: monthly or less - Travel History Recent Travel in the [facility] Within the Last 8 Weeks: No Recent Travel Out of the Country Within the Last 8 Weeks: No - Immunization History Tetanus Immunization: <5 Years Hx Influenza Vaccine This Season: Unable to Assess Medications and Allergies Active Medications: Active Medications Atorvastatin Calcium (Lipitor) 40 mg PO HS GINA Last Admin: 05/31/18 23:38 Dose: 40 mg Bupropion HCl (Wellbutrin Sr) 150 mg PO BID GINA Last Admin: 06/02/18 09:27 Dose: 150 mg Diphenhydramine HCl (Benadryl) 50 mg PO HS PRN PRN Reason: INSOMNIA Last Admin: 06/02/18 02:24 Dose: 50 mg Lorazepam (Ativan) 0.5 mg PO Q12HR PRN PRN Reason: ANXIETY AND/OR AGITATION Last Admin: 06/02/18 02:23 Dose: 0.5 mg Lorazepam (Ativan Inj) 0.5 mg IM Q12H PRN PRN Reason: MODERATE TO SEVERE ANXIETY Metformin HCl (Glucophage) 500 mg PO DAILY [facility] Last Admin: 06/02/18 09:28 Dose: 500 mg Metoprolol Tartrate (Lopressor) 12.5 mg PO BID [facility] Last Admin: 06/02/18 09:30 Dose: 12.5 mg Miscellaneous (Pill Splitter) 1 each OTHER PRN PRN PRN Reason: SEE LABEL COMMENTS Risperidone (Risperdal) 0.5 mg PO BID [facility] Last Admin: 06/02/18 09:27 Dose: 0.5 mg Sertraline HCl (Zoloft) 50 mg PO DAILY [facility] Last Admin: 06/02/18 09:27 Dose: 50 mg Tolterodine Tartrate (Detrol La) 2 mg PO BID [facility] Last Admin: 06/02/18 09:26 Dose: 2 mg Allergies Allergy/AdvReac Type Severity Reaction Status Date / Time Tetracyclines Allergy Severe RASH Verified 02/17/18 17:52 Home Medications Medication Instructions Recorded Confirmed Type Crestor 20 mg PO HS 05/24/18 05/31/18 History Ditropan XL 5 mg PO BID 05/24/18 05/31/18 History Glucophage 500 mg PO DAILY 05/24/18 05/31/18 History Lopressor 12.5 mg PO BID 05/24/18 05/31/18 History Wellbutrin XL 300 mg PO DAILY 05/24/18 05/31/18 History Zoloft 50 mg PO DAILY 05/24/18 05/31/18 History hydroxyzine HCl 10 mg PO BID PRN 05/24/18 05/31/18 History Exam Vital signs: Vital Signs 06/01/18 17:59 06/02/18 06:00 Temperature 97.3 F L 98.3 F Pulse Rate 94 H Respiratory Rate 16 18 Blood Pressure 130/61 110/60 Pulse Oximetry 97 96 Mental Status Examination Appearance: Disheveled Consciousness: Highly distractible Orientation: Person Motor Activity: Other (Lying in bed) Speech: Slow Language: Adequate Fund of Knowledge: Poor Attention and Concentration: Inadequate Memory: Impaired Mood: Anxious Affect: Sad, Anxious Thought Process & Associations: Disorganized (At times) Thought Content: Bizarre thinking, Delusional Hallucination Type: Auditory (Patient had a confirmed nor denied) Delusion Type: Paranoid, Other (Unable to determine) Suicidal Ideation: Yes Suicidal Plan: No Suicidal Intention: No Homicidal Ideation: No Homicidal Plan: No Homicidal Intention: No Insight: Poor Judgment: Poor Assessment and Plan - Assessment (1) Major depressive disorder Code(s): F32.9 - Major depressive disorder, single episode, unspecified Status : Acute - Plan Plan: Estimated LOS: [] days Patient is a 68-year-old woman who carries a diagnosis of depression and anxiety, schizophrenia as per collateral, with unclear previous psychiatric admissions, no previous suicide attempts, no substance use history, currently under the care of Dr. Barajas outpatient psychiatrist, who presented to the ED 3 separate times in 1 week and currently under Lombardi act for suicide ideations which patient at this time continues to endorse as well as paranoid delusions which patient this time requires inpatient psychiatric stabilization and for safety. Patient will restart risperidone at 0.5 mg p.o. twice daily, continue Wellbutrin 150 mg p.o. twice daily and sertraline 50 mg p.o. daily. Continue recommendations as per primary medical team, hospitalist input appreciated. Social work intervention for psychosocial assessment. Continue to monitor mood and behavior. Petition for involuntary hospitalization started, we will request healthcare surrogate and guardian advocate. Discharge planning in progress. I have seen and examined this patient, reviewed documentation, discussed personally with Dr. Morse, I agree and concur with assessment and plan. Justification for Continued Inpatient Stay: Continue psychiatric admission for stabilization. (1) Major depressive disorder Qualifiers: Major depression recurrence: recurrent Active/Remission status: currently active Major depression episode severity: severe Psychotic features: with psychotic features Qualified Code(s): F33.3 - Major depressive disorder, recurrent, severe with psychotic symptoms
--- NOTE | 2018-06-02 17:22 | P.PNPSY ---
Subjective Remarks: Patient seen for follow-up, chart reviewed. Discussion nursing staff reported the patient slept last evening, has a cooperative compliant with medications today. Patient was found in day room eating lunch noted B, cooperative. Patient states that she continues to feel anxious and depressed, along with continue auditory hallucinations but did not want to elaborate. Patient continues to have suicidal ideation, states that she slept well last evening. Patient continues to have difficulty elaborating what is making her feel anxious and depressed. Review of Systems All other systems reviewed negative except as stated in HPI Mental Status Examination Appearance: Disheveled Consciousness: Highly distractible (Less so today) Orientation: Person Motor Activity: Other (Lying in bed) Speech: Slow Language: Adequate Fund of Knowledge: Poor Attention and Concentration: Inadequate Memory: Impaired Mood: Anxious Affect: Sad, Anxious Thought Process & Associations: Disorganized (At times) Thought Content: Bizarre thinking, Delusional Hallucination Type: Auditory (Patient had a confirmed nor denied) Delusion Type: Paranoid, Other (Unable to determine) Suicidal Ideation: Yes Suicidal Plan: No Suicidal Intention: No Homicidal Ideation: No Homicidal Plan: No Homicidal Intention: No Insight: Poor Judgment: Poor Assessment and Plan - Assessment (1) Major depressive disorder Code(s): F32.9 - Major depressive disorder, single episode, unspecified Status : Acute - Plan Plan: Patient continues with depressed and anxiety, along with continue suicide ideations and auditory hallucinations. Patient recently started on risperidone , we will continue current dose for now and continue to monitor mood and behavior along with continue education regimen. We will continue to monitor with behavior. Discharge planning in progress. Justification for Continued Inpatient Stay: At risk for further decompensation if at lower level of care (1) Major depressive disorder Qualifiers: Major depression recurrence: recurrent Active/Remission status: currently active Major depression episode severity: severe Psychotic features: with psychotic features Qualified Code(s): F33.3 - Major depressive disorder, recurrent, severe with psychotic symptoms
--- NOTE | 2018-06-02 19:03 | P.PN ---
Subjective Interval history: Follow-up visit for AMS and confusion. Patient is seen and examined resting in bed and appears to be in no acute distress. Sitter at bedside reports patient being very emotional, nurse also reports this. She is alert to self, and place but continues to be very confused continues to be confused, when asked if something is hurting her she states "yes my emotions". Denies any headaches, SOB , cough, fevers, or chills. Nurse will try and obtain urine sample for UA today. Physical Exam Vital signs: Vital Signs 06/02/18 06:00 06/02/18 18:16 Temperature 36.8 C Pulse Rate 83 Respiratory Rate 18 20 Blood Pressure 110/60 162/77 H Pulse Oximetry 96 94 L Intake & Output 06/02/18 06/02/18 06/03/18 06:59 18:59 06:59 Intake Total 240 / 240 Balance 240 / 240 Intake: Oral 240 / 240 Narrative: GENERAL: Elderly female, well developed, in no acute distress, ambulating. SKIN: Warm and dry. HEAD: Atraumatic. Normocephalic. EYES: Pupils equal and round. No scleral icterus. No injection or drainage. ENT: No nasal bleeding or discharge. Mucous membranes pink and moist. NECK: Trachea midline. No JVD. CARDIOVASCULAR: Regular rate and rhythm. RESPIRATORY: No accessory muscle use. Clear to auscultation. Breath sounds equal bilaterally. GASTROINTESTINAL: Abdomen soft, non-tender, nondistended. + bowel sounds. MUSCULOSKELETAL: Extremities without clubbing, cyanosis, or edema. No obvious deformities. NEUROLOGICAL: Awake and alert, oriented to self, place, and time. No obvious cranial nerve deficits, CN 2-12 intact. Motor grossly within normal limits. Five out of 5 muscle strength in the arms and legs. Clear speech, sentences do not make sense during her conversation with scattered thoughts. Ambulates without assistance, gait is normal. PSYCHIATRIC: Questionable insight and judgment. 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 [facility] consulted to assist with further evaluation of altered mental status, hypertension, and diabetes. AMS/confusion -Labs unremarkable, CBC and CMP stable, toxicology screen negative. - Head CT with right sided MATERIALS MANAGEMENT SUPERVISOR shunt with the tip in the left lateral ventricle. Mild ventricular prominence with no priors to assess for changes. Chronic changes with moderately severe periventricular small vessel ischemic demyelination. Probable punctate old lacunar type infarcts in the basal ganglia bilaterally. - Check B12, folate, UA for possible possible source of AMS, nurse to obtain today. Hx DM Hx HTN HLD -Random blood sugars on lab work have been stable, pending hemoglobin A1c. Continue metformin 500 mg daily. -Continue Lopressor 12.5 mg twice daily -Continue Lipitor 40 mg at bedtime DVT prophylaxis-ambulation Discussed Condition With: Nurse and sitter
[2018-06-02 19:49] LABS: Bacteria,Urine Few /hpf; Bilirubin,Urine Negative (Negative); Clarity,Urine Hazy (Clear); Color,Urine Yellow (Yellw/Straw); Glucose,Urine (UA) Negative (Negative); Hyaline Casts,Urine 1 /lpf (0-3); Leukocyte Esterase,Urine Negative (Negative); Mucus,Urine Few /lpf (Occasional); Nitrite,Urine Negative (Negative); Specific Gravity,Urine 1.011 (1.002-1.035); Squamous Epithelial Cell,Urine 1 /hpf (0-5)
[2018-06-03] MEDS: buPROPion 150 MG 12 HR Tablet PO SCH ×3 (00:52→22:09)
[2018-06-03] MEDS: Tolterodine Tartrate LA 2 MG Capsule PO SCH ×3 (00:52→22:10)
[2018-06-03] MEDS: Metoprolol Tartrate 25 MG Tablet PO SCH ×3 (00:52→22:10)
--- NOTE | 2018-06-03 08:45 | P.PNPSY ---
Subjective Remarks: Patient seen for follow-up, chart reviewed. Discussion with nursing staff reported that the patient cooperative, confused, slept well, depressed, noted to be crying at times. Patient was found to be calm and cooperative with interview, patient was found lying hospital bed asleep was able to wake up to interact with interview today. Patient states that she slept well last night and that her mood is "depressed", noted to be crying during interview and unable to elaborate to questioning but was able to answer questions. Patient also continues to endorse continued auditory hallucinations along with thoughts of not wanting to be alive. Patient was encouraged to participate in groups and activities while on the unit and appeared reluctant. Review of Systems All other systems reviewed negative except as stated in HPI Mental Status Examination Appearance: Disheveled Consciousness: Somnolent Orientation: Person Motor Activity: Other (Lying in bed) Speech: Slow Language: Adequate Fund of Knowledge: Poor Attention and Concentration: Inadequate Memory: Impaired Mood: Anxious Affect: Sad, Anxious Thought Process & Associations: Disorganized (At times) Thought Content: Bizarre thinking, Delusional Hallucination Type: Auditory (Patient had a confirmed nor denied) Delusion Type: Paranoid, Other (Unable to determine) Suicidal Ideation: Yes Suicidal Plan: No Suicidal Intention: No Homicidal Ideation: No Homicidal Plan: No Homicidal Intention: No Insight: Poor Judgment: Poor Assessment and Plan - Assessment (1) Major depressive disorder Code(s): F32.9 - Major depressive disorder, single episode, unspecified Status : Acute - Plan Plan: To use with depressed mood, along with thoughts of not wanting to be alive and auditory hallucinations. We will continue to titrate risperidone to 0.5 mg a.m. /1mg at bedtime for psychosis. Continue rest of medications. Continue recommendations as per prior medical team. Hospitalist input appreciated. Discharge planning a progress. Justification for Continued Inpatient Stay: At risk for further decompensation if at lower level of care (1) Major depressive disorder Qualifiers: Major depression recurrence: recurrent Active/Remission status: currently active Major depression episode severity: severe Psychotic features: with psychotic features Qualified Code(s): F33.3 - Major depressive disorder, recurrent, severe with psychotic symptoms
--- NOTE | 2018-06-03 09:29 | P.PN ---
Subjective Interval history: Follow-up visit on 5-year-old female with altered mental status. Patient is seen and examined resting in bed comfortably, awakens to voice. She is oriented to year, place, and self, will follow simple commands however once questioned about how she is feeling conversation and thought process continues to be very scattered. She denies any fevers, chills, nausea, vomiting, dysuria , headache, dizziness, cough or shortness of breath. Nurse reports patient continues to be very confused. Physical Exam Vital signs: Vital Signs 06/02/18 18:16 06/03/18 05:34 Temperature 37.2 C Pulse Rate 83 70 Respiratory Rate 20 18 Blood Pressure 162/77 H 112/65 Pulse Oximetry 94 L 96 Intake & Output 06/02/18 06/03/18 06/03/18 18:59 06:59 18:59 Intake Total 240 / 240 Balance 240 / 240 Intake: Oral 240 / 240 Narrative: GENERAL: Elderly female, well developed, in no acute distress, resting in bed. SKIN: Warm and dry. HEAD: Atraumatic. Normocephalic. EYES: Pupils equal and round. No scleral icterus. No injection or drainage. ENT: No nasal bleeding or discharge. Mucous membranes pink and moist. NECK: Trachea midline. CARDIOVASCULAR: Regular rate and rhythm. RESPIRATORY: No accessory muscle use. Clear to auscultation. Breath sounds equal bilaterally. GASTROINTESTINAL: Abdomen soft, non-tender, nondistended. + bowel sounds. MUSCULOSKELETAL: Extremities without clubbing, cyanosis, or edema. No obvious deformities. NEUROLOGICAL: Awake and alert, oriented to self, place, year. No obvious cranial nerve deficits. Motor grossly within normal limits. Clear speech, few spoke words with ongoing scattered thoughts. PSYCHIATRIC: Questionable insight and judgment. Results - Labs CBC & Chem 7: 05/30/18 17:17 06/01/18 06:25 Laboratory Results - last 24 hr 06/02/18 19:28 Urine Color Yellow Urine Clarity Hazy H Urine pH 5.0 Ur Specific [place] 1.011 Urine Protein Negative Urine Glucose (UA) Negative Urine Ketones Negative Urine Occult Blood Small H Urine Nitrate Negative Urine Bilirubin Negative Urine Urobilinogen 2.0 H Ur Leukocyte Esterase Negative Urine RBC 1 Urine WBC 8 H Ur Squamous Epith Cells 1 Urine Bacteria Few H Hyaline Casts 1 Urine Mucus Few H Assessment and Plan - Plan 68-year-old female with past medical history significant for hypertension, hyperlipidemia, diabetes mellitus, history of HUC shunt placement, anxiety and depression who presents to the emergency department on 05/30 under Lombardi act. Patient has a history of HUC shunt placement and is questioning if this could be the possible cause of her altered mental status. [facility] consulted to assist with further evaluation of altered mental status, hypertension, and diabetes. AMS/confusion -Labs unremarkable, CBC and CMP stable, toxicology screen negative. - Head CT with right sided HUC shunt with the tip in the left lateral ventricle. Mild ventricular prominence with no priors to assess for changes. Chronic changes with moderately severe periventricular small vessel ischemic demyelination. Probable punctate old lacunar type infarcts in the basal ganglia bilaterally. - Check B12 and folate WNL. Vitamin D pending. UA sent however no reflux to culture. -Ongoing confusion, no UTI present, lab work so far fairly normal. Discussed with Dr. Morse, consult neurology for further recommendations and workup, greatly appreciate assistance. Hx DM Hx HTN HLD -Random blood sugars on lab work have been stable, hemoglobin A1c 6.4. Continue metformin 500 mg daily for now. -Continue Lopressor 12.5 mg twice daily -Continue Lipitor 40 mg at bedtime -Heart rate and blood pressure stable DVT prophylaxis-ambulation Discussed Condition With: Nursing staff, Dr. Morse.
[2018-06-03] MEDS: Sertraline 50 MG Tablet PO SCH (10:56)
[2018-06-03] MEDS: LORazepam 0.5 MG Tablet PO PRN (15:00)
--- NOTE | 2018-06-03 17:07 | MB ---
cc: Roxane Escobar MD DATE: 06/03/2018 REASON FOR CONSULTATION: Change in mental status. HISTORY OF PRESENT ILLNESS: The patient is a 68-year-old woman with a history of hypertension, hyperlipidemia, type 2 diabetes, STONER OUT shunt placed for hydrocephalus, but the patient cannot elaborate to when it was placed, but she states it was in [place]; history of anxiety and depression and possible some other psychiatric history in the past. Apparently, she has Lombardi Acted on 05/30. DCF worker who examined her,found the patient's apartment in disarray, medicines on the floor, likely unable to care for herself. Her Goddaughter is her healthcare surrogate. PAST MEDICAL HISTORY: As stated. PAST SURGICAL HISTORY: A shunt, tonsillectomy. SOCIAL HISTORY: Status as far as alcohol and tobacco unknown. HOME MEDICINES: 1. Atorvastatin. 2. Bupropion. 3. Diphenhydramine. 4. Zoloft. 5. Risperidone. 6. Tolterodine. PHYSICAL EXAMINATION: VITAL SIGNS: Temperature is 98.9, pulse 70, respiratory rate 18, blood pressure 112/65, saturating at 90% on room air. NECK: Supple, no bruits. HEART: Regular. NEUROLOGIC: She is awake and alert. She currently has a sitter with her. Pupils reactive. Face is symmetrical. Tongue midline. Motor garber, she knows who she is. She is very hypophonic. She tells me she is at the hospital. She states she is hearing voices from the TV, saying bad things about her. Motor garber, she seems to move everything equally, but does not follow for cerebellar testing. Withdraws to painful stimuli. We will defer gait to PT for safety. LABORATORY DATA: Reviewed. Her CBC is unremarkable. Chemistries: Her CO2 is 20.9, BUN 22, GFR 68. Hemoglobin A1c is 6.4. B12 more than 2000. Her TSH is 2.010. Triglycerides 107. Cholesterol 139, LDL 71, HDL 46.5. Urine, 2 urobilinogen, leukocyte esterase negative, small occult blood, few mucus. It is hazy. Tox screen is negative for salicylates, alcohol or acetaminophen. IMAGING STUDIES: CT head shows a STONER OUT shunt with chronic changes, but nothing acute. ASSESSMENT AND PLAN: A 68-year-old woman with confusion and change in mental status. I am not sure if the patient has onset of dementia at this point. Recommend getting an EEG. I will add an RPR. We will continue to monitor her. Continue treatment. I would consider possibly starting her on some Namenda, start at 5 mg at night for a week and then can go to twice daily. If there are any abnormalities on EEG concerning for seizure-like events, I would recommend at that point to stop her Wellbutrin. As far as the functionality of the shunt, certainly a shunt series can be done. However, CT does not show any increase in ventricle, such as increase in hydrocephalus. There are no signs of infection. Consideration will be to have Neurosurgery comment on the shunt and see if they think that there is an issue with it, although probably not, but certainly if she does not improve, that would be a consideration. Continue current recommendations and current care per Psychiatry. EEG and RPR has been added to her orders. MD ARELIS Singh/NANO , 04:47 PM , 05:05 PM
--- NOTE | 2018-06-04 09:17 | P.PN ---
Subjective Interval history: Follow-up visit for altered mental status. Nurse reports patient has not been eating much, ongoing confusion. Patient is seen and examined resting in bed eyes closed, will awaken to voice. She denies any discomfort or pain. Denies any headache, dizziness, cough or shortness of breath. Physical Exam Vital signs: Vital Signs 06/03/18 18:17 06/04/18 05:34 Temperature 36.6 C Pulse Rate 88 73 Respiratory Rate 17 17 Blood Pressure 146/87 H 155/85 H Pulse Oximetry 94 L 94 L Intake & Output 06/03/18 06/04/18 06/04/18 18:59 06:59 18:59 Intake Total 600 / 600 Balance 600 / 600 Intake: Oral 600 / 600 Narrative: GENERAL: Elderly female, well developed, in no acute distress, resting in bed. SKIN: Warm and dry. HEAD: Atraumatic. Normocephalic. EYES: Pupils equal and round. No scleral icterus. No injection or drainage. ENT: No nasal bleeding or discharge. Mucous membranes pink and moist. NECK: Trachea midline. CARDIOVASCULAR: Regular rate and rhythm. RESPIRATORY: No accessory muscle use. Clear to auscultation. Breath sounds equal bilaterally. GASTROINTESTINAL: Abdomen soft, non-tender, nondistended. + bowel sounds. MUSCULOSKELETAL: Extremities without clubbing, cyanosis, or edema. No obvious deformities. NEUROLOGICAL: Resting in bed with eyes closed, awakens to voice. No obvious cranial nerve deficits. Motor grossly within normal limits. Clear speech, few spoke words with ongoing scattered thoughts. PSYCHIATRIC: Questionable insight and judgment. Results - Labs CBC & Chem 7: 05/30/18 17:17 06/01/18 06:25 Laboratory Results - last 24 hr 06/01/18 06/03/18 06:25 07:49 Vitamin B12 Greater than 2000 H Vit D 1,25-Dihydroxy 67 Folate Greater than 20.0 H Assessment and Plan - Plan 68-year-old female with past medical history significant for hypertension, hyperlipidemia, diabetes mellitus, history of MATERIAL YARD CLERK shunt placement, anxiety and depression who presents to the emergency department on 05/30 under Lomb[place] act. Patient has a history of MATERIAL YARD CLERK shunt placement and is questioning if this could be the possible cause of her altered mental status. [facility] consulted to assist with further evaluation of altered mental status, hypertension, and diabetes. AMS/confusion -Labs unremarkable, CBC and CMP stable, toxicology screen negative. - Head CT with right sided MATERIAL YARD CLERK shunt with the tip in the left lateral ventricle. Mild ventricular prominence with no priors to assess for changes. Chronic changes with moderately severe periventricular small vessel ischemic demyelination. Probable punctate old lacunar type infarcts in the basal ganglia bilaterally. - Check B12 and folate WNL. Vitamin D pending. UA sent however no reflux to culture. -Ongoing confusion, no UTI present, lab work so far fairly normal. -Patient seen and evaluated by neurology, greatly appreciate assistance. -Recommendations to check RPR and EEG. If EEG positive recommends discontinuing Wellbutrin. -Neurology also believes possibly early onset of dementia, recommendations for low-dose Namenda at bedtime, will await EEG results. CT with no increase in ventricles to suggest hydrocephalus. Hx DM Hx HTN HLD -Random blood sugars on lab work have been stable, hemoglobin A1c 6.4. Continue metformin 500 mg daily for now. -Continue Lopressor 12.5 mg twice daily -Continue Lipitor 40 mg at bedtime -Heart rate and blood pressure stable Poor p.o. intake -We will start D5 NS for hydration as patient has poor p.o. intake. -Hope is once psychiatric medications are adjusted and patient is stabilized her intake will increase. DVT prophylaxis-ambulation Discussed Condition With: Patient and nurse.
[2018-06-04] MEDS: Tolterodine Tartrate LA 2 MG Capsule PO SCH ×2 (10:14→22:33)
[2018-06-04] MEDS: Metoprolol Tartrate 25 MG Tablet PO SCH ×2 (10:15→22:33)
[2018-06-04] MEDS: Sertraline 50 MG Tablet PO SCH (10:15)
[2018-06-04] MEDS: buPROPion 150 MG 12 HR Tablet PO SCH ×2 (10:15→22:33)
[2018-06-04] MEDS: Dextrose 5%/NaCl 0.9% Inj 1,000 ML IV.CONT SCH (15:11)
--- NOTE | 2018-06-04 16:33 | P.PNPSY ---
Subjective Remarks: Patient was seen and case discussed with nursing. Patient is alert and oriented 3. She seems confused by the questions. She is reporting suicidal ideation without any intent or plan. She continues to be monitored by the one- to-one. Compliant with her medications. Appears internally stimulated Mental Status Examination Appearance: Disheveled Consciousness: Somnolent Orientation: Person Motor Activity: Other (Lying in bed) Speech: Slow Language: Adequate Fund of Knowledge: Poor Attention and Concentration: Inadequate Memory: Impaired Mood: Anxious Affect: Sad, Anxious Thought Process & Associations: Disorganized (At times) Thought Content: Bizarre thinking, Delusional Hallucination Type: Auditory (Internally stimulated) Delusion Type: Paranoid, Other (Unable to determine) Suicidal Ideation: Yes (Nonspecific) Suicidal Plan: No Suicidal Intention: No Homicidal Ideation: No Homicidal Plan: No Homicidal Intention: No Insight: Poor Judgment: Poor Assessment and Plan - Assessment (1) Major depressive disorder Code(s): F32.9 - Major depressive disorder, single episode, unspecified Status : Acute - Plan Plan: Continue current treatment plan Justification for Continued Inpatient Stay: Patient would decompensate in a less restrictive setting (1) Major depressive disorder Qualifiers: Major depression recurrence: recurrent Active/Remission status: currently active Major depression episode severity: severe Psychotic features: with psychotic features Qualified Code(s): F33.3 - Major depressive disorder, recurrent, severe with psychotic symptoms
[2018-06-05] MEDS: Dextrose 5%/NaCl 0.9% Inj 1,000 ML IV.CONT SCH (06:01)
--- NOTE | 2018-06-05 07:44 | MG ---
cc: Roxane Escobar MD EEG NUMBER: [id number] ROOM: [facility] PATIENT INFORMATION: Photic stimulation. Awake, drowsy study. History of change in mental status. A 68-year-old woman with hallucinations. DESCRIPTION OF RECORD: The patient has a background rhythm, predominantly of 6 Hz. A lot of movement artifact of her eyes, but overall fairly symmetrical. EKG looks sinus. Overall fairly well-organized background. No epileptic activity. Hyperventilation not done. Photic stimulation with a driving response. IMPRESSION: Mild slowing can be seen in a mild encephalopathy versus medication effect. No evidence of any epileptiform features in this recording. Clinical correlation. Roxane Escobar MD DF/NANO , 07:24 AM , 07:43 AM
--- NOTE | 2018-06-05 08:29 | P.PN ---
Subjective Interval history: Follow-up visit for AMS. Nurse reports patient has pulled out IV, attempt to obtain new IV numerous times that were unsuccessful. Patient seen and examined resting in bed with eyes closed. She awakens to voice, denies any fevers, chills , N/V/D, cough or SOB. Physical Exam Vital signs: Vital Signs 06/04/18 18:37 06/05/18 05:30 Temperature 36.4 C L 36.8 C Pulse Rate 76 90 Respiratory Rate 17 18 Blood Pressure 124/71 152/68 H Pulse Oximetry 93 L 95 Intake & Output 06/04/18 06/05/18 06/05/18 18:59 06:59 18:59 Intake Total 480 / 480 360 / 360 Balance 480 / 480 360 / 360 Intake: Oral 480 / 480 360 / 360 Other: # Voids 1 Narrative: GENERAL: Elderly female, well developed, in no acute distress, resting in bed. SKIN: Warm and dry. HEAD: Atraumatic. Normocephalic. EYES: Pupils equal and round. No scleral icterus. No injection or drainage. ENT: No nasal bleeding or discharge. Mucous membranes pink and moist. NECK: Trachea midline. CARDIOVASCULAR: Regular rate and rhythm. RESPIRATORY: No accessory muscle use. Clear to auscultation. Breath sounds equal bilaterally. GASTROINTESTINAL: Abdomen soft, non-tender, nondistended. + bowel sounds. MUSCULOSKELETAL: Extremities without clubbing, cyanosis, or edema. No obvious deformities. NEUROLOGICAL: Resting in bed with eyes closed, awakens to voice. No obvious cranial nerve deficits. Motor grossly within normal limits. Clear speech, few spoke. PSYCHIATRIC: Questionable insight and judgment. 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 [facility] consulted to assist with further evaluation of altered mental status, hypertension, and diabetes. AMS/confusion ?onset of Dementia -Labs unremarkable, CBC and CMP stable, toxicology screen negative. - Head CT with right sided AIRPLANE PILOT CROP DUSTING shunt with the tip in the left lateral ventricle. Mild ventricular prominence with no priors to assess for changes. Chronic changes with moderately severe periventricular small vessel ischemic demyelination. Probable punctate old lacunar type infarcts in the basal ganglia bilaterally. - Check B12 and folate WNL. Vitamin D level 67. UA sent however no reflux to culture. - Patient seen and evaluated by neurology, greatly appreciate assistance. - PRP pending, EEG draft report with mild slowing/mild encephalopathy vs medication effect. Ne epileptiform features. - Neurology also believes possibly early onset of dementia, CT with no increase in ventricles to suggest hydrocephalus. - Start Namenda 5mg HS as recommended by neuro, increase to 5mg BID after a week if tolerating and good response. Hx DM Hx HTN HLD -Random blood sugars on lab work have been stable, hemoglobin A1c 6.4. Continue metformin 500 mg daily for now. -Continue Lopressor 12.5 mg twice daily -Continue Lipitor 40 mg at bedtime -Heart rate and blood pressure stable Poor p.o. intake -We will start D5 NS for hydration as patient has poor p.o. intake. -Hope is once psychiatric medications are adjusted and patient is stabilized her intake will increase. DVT prophylaxis-ambulation Discussed Condition With: Discussed with nurse
[2018-06-05] MEDS: Sertraline 50 MG Tablet PO SCH (10:21)
[2018-06-05] MEDS: Tolterodine Tartrate LA 2 MG Capsule PO SCH ×2 (10:21→21:55)
[2018-06-05] MEDS: buPROPion 150 MG 12 HR Tablet PO SCH ×2 (10:22→21:56)
[2018-06-05] MEDS: Metoprolol Tartrate 25 MG Tablet PO SCH (10:22)
--- NOTE | 2018-06-05 14:08 | P.PNPSY ---
Subjective Remarks: Patient was seen and case discussed with nursing. Per nursing, patient is eating well. Patient remains confused believing that the patient next to hers her mother. She also says that she wants to . She does not describe any plans or intent of doing so. Behaving well per nursing Mental Status Examination Appearance: Disheveled Consciousness: Somnolent Orientation: Person Motor Activity: Other (Lying in bed) Speech: Slow Language: Adequate Fund of Knowledge: Poor Attention and Concentration: Inadequate Memory: Impaired Mood: Anxious Affect: Sad, Anxious Thought Process & Associations: Disorganized (At times) Thought Content: Bizarre thinking, Delusional Hallucination Type: Auditory (Internally stimulated) Delusion Type: Paranoid, Other (Unable to determine) Suicidal Ideation: Yes (Nonspecific) Suicidal Plan: No Suicidal Intention: No Homicidal Ideation: No Homicidal Plan: No Homicidal Intention: No Insight: Poor Judgment: Poor Assessment and Plan - Assessment (1) Major depressive disorder Code(s): F32.9 - Major depressive disorder, single episode, unspecified Status : Acute - Plan Plan: There appears to be a shortage of one-to-one sitters and one is not present with the patient at this time. Nursing was asked to provide a sitter for the patient today Justification for Continued Inpatient Stay: Patient would decompensate in a less restrictive setting (1) Major depressive disorder Qualifiers: Major depression recurrence: recurrent Active/Remission status: currently active Major depression episode severity: severe Psychotic features: with psychotic features Qualified Code(s): F33.3 - Major depressive disorder, recurrent, severe with psychotic symptoms
--- NOTE | 2018-06-06 08:36 | P.PN ---
Subjective Interval history: Follow-up visit for altered mental status. Patient is seen and examined sitting up on the side of the bed, appears to be in no acute distress, has not touched any of her breakfast this morning. Patient states that her mother is dying and points to the bed beside her. Patient is alert and oriented to self, place, and time. When asked patient why she came to the hospital she reports that she had pills and was unable to follow-up with her psychiatrist appointments. She denies any fevers, chills, nausea, vomiting, diarrhea, SOB, cough or dysuria. Physical Exam Vital signs: Vital Signs 06/05/18 17:42 06/06/18 06:00 Temperature 36.6 C 36.7 C Pulse Rate 90 76 Respiratory Rate 16 16 Blood Pressure 140/80 131/90 Pulse Oximetry 94 L 95 Intake & Output 06/05/18 06/06/18 06/06/18 18:59 06:59 18:59 Intake Total 660 / 660 340 / 340 0 / 0 Balance 660 / 660 340 / 340 0 / 0 Weight 74 kg Intake: Oral 660 / 660 240 / 240 0 / 0 Oral Supplement 100 / 100 Other: # Voids 3 2 Narrative: GENERAL: Elderly female, well developed, in no acute distress. SKIN: Warm and dry. HEAD: Atraumatic. Normocephalic. EYES: Pupils equal and round. No scleral icterus. No injection or drainage. ENT: No nasal bleeding or discharge. Mucous membranes pink and moist. NECK: Trachea midline. CARDIOVASCULAR: Regular rate and rhythm. RESPIRATORY: No accessory muscle use. Clear to auscultation. Breath sounds equal bilaterally. GASTROINTESTINAL: Abdomen soft, non-tender, nondistended. + bowel sounds. MUSCULOSKELETAL: Extremities without clubbing, cyanosis, or edema. No obvious deformities. NEUROLOGICAL: Awake and alert, oriented to time, place, and self. No obvious cranial nerve deficits. Motor grossly within normal limits. Clear speech. PSYCHIATRIC: Questionable insight and judgment. 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 Patient has a history of J2EE DEVELOPER shunt placement and is questioning if this could be the possible cause of her altered mental status. [facility] consulted to assist with further evaluation of altered mental status, hypertension, and diabetes. AMS/confusion ?onset of Dementia -Labs unremarkable, CBC and CMP stable, toxicology screen negative. - Head CT with right sided J2EE DEVELOPER shunt with the tip in the left lateral ventricle. Mild ventricular prominence with no priors to assess for changes. Chronic changes with moderately severe periventricular small vessel ischemic demyelination. Probable punctate old lacunar type infarcts in the basal ganglia bilaterally. - Check B12 and folate WNL. Vitamin D level 67. UA sent however no reflux to culture. - Patient seen and evaluated by neurology, greatly appreciate assistance. - PRP pending, EEG draft report with mild slowing/mild encephalopathy vs medication effect. Ne epileptiform features. - Neurology also believes possibly early onset of dementia, CT with no increase in ventricles to suggest hydrocephalus. - Started on Namenda 5mg HS as recommended by neuro, increase to 5mg BID after a week. Hx DM Hx HTN HLD -Random blood sugars on lab work have been stable, hemoglobin A1c 6.4. Continue metformin 500 mg daily for now. -Continue Lopressor 12.5 mg twice daily -Continue Lipitor 40 mg at bedtime -Heart rate and blood pressure stable Poor p.o. intake -Patient pulling out IV, will start Megace for appetite. - TID ensure with meals. DVT prophylaxis-ambulation
[2018-06-06] MEDS: Sertraline 50 MG Tablet PO SCH (10:56)
[2018-06-06] MEDS: Tolterodine Tartrate LA 2 MG Capsule PO SCH ×2 (10:56→21:21)
[2018-06-06] MEDS: buPROPion 150 MG 12 HR Tablet PO SCH ×2 (10:56→21:22)
[2018-06-06] MEDS: Megestrol Acetate Liq 400 MG/10 ML UDC PO SCH (10:56)
[2018-06-06] MEDS: Metoprolol Tartrate 25 MG Tablet PO SCH ×2 (10:56→21:22)
--- NOTE | 2018-06-06 16:03 | P.PNPSY ---
Subjective Remarks: Patient seen for follow-up, chart reviewed. Discussion with nursing staff reported that the patient pulled out her IV line, continue with suicide ideations and talks about life insurance and continues with auditory hallucinations which she had stated that the doctor wants to cut her breast off ; compliant with medications. Patient was found lying hospital bed noted to be smiling and laughing at times during interview states that she is feeling "better" along with her mood being good but reports feeling less depressed although continues to endorse suicide ideations. Patient states that she continues to have auditory hallucination but they are less intense. Patient continues to have some difficulty with organizing her thoughts during interview but less today. Review of Systems All other systems reviewed negative except as stated in HPI Mental Status Examination Appearance: Disheveled (Less so today) Consciousness: Alert Orientation: Person Motor Activity: Other (Lying in bed) Speech: Slow Language: Adequate Fund of Knowledge: Poor Attention and Concentration: Inadequate Memory: Impaired Mood: Sad Affect: Sad Thought Process & Associations: Disorganized (At times) Thought Content: Bizarre thinking, Delusional Hallucination Type: Auditory (Internally stimulated) Delusion Type: Paranoid, Other (Unable to determine) Suicidal Ideation: Yes (Nonspecific) Suicidal Plan: No Suicidal Intention: No Homicidal Ideation: No Homicidal Plan: No Homicidal Intention: No Insight: Poor Judgment: Poor Assessment and Plan - Assessment (1) Major depressive disorder Code(s): F32.9 - Major depressive disorder, single episode, unspecified Status : Acute - Plan Plan: Patient this time continues with depressed mood along with continue suicide ideations had auditory hallucinations which she states are less intense but as per nursing report continue to be prominent. There is continued concern for suicide ideation as patient focused on dying. We will increase risperidone to 1 mg p.o. twice daily, increase sertraline to 75 mg p.o. daily, continue rest of medications. Continue to monitor mood and behavior. Discharge planning a progress. Justification for Continued Inpatient Stay: At risk of further decompensation a lower level care. (1) Major depressive disorder Qualifiers: Major depression recurrence: recurrent Active/Remission status: currently active Major depression episode severity: severe Psychotic features: with psychotic features Qualified Code(s): F33.3 - Major depressive disorder, recurrent, severe with psychotic symptoms
[2018-06-07] MEDS: Metoprolol Tartrate 25 MG Tablet PO SCH ×3 (02:45→20:24)
[2018-06-07] MEDS: Dextrose 5%/NaCl 0.9% Inj 1,000 ML IV.CONT SCH ×3 (02:46→22:18)
[2018-06-07] MEDS: Megestrol Acetate Liq 400 MG/10 ML UDC PO SCH (10:41)
[2018-06-07] MEDS: Tolterodine Tartrate LA 2 MG Capsule PO SCH ×2 (10:41→20:23)
[2018-06-07] MEDS: buPROPion 150 MG 12 HR Tablet PO SCH ×2 (10:42→20:24)
[2018-06-07] MEDS: Sertraline 50 MG Tablet PO SCH ×2 (10:42→10:44)
--- NOTE | 2018-06-07 15:13 | P.PN ---
Subjective Interval history: Follow-up visit for altered mental status. Patient is seen and examined sitting up in wheelchair on her way to group therapy, appears to be in no acute distress. Patient is alert and oriented to self, place, and time, but appears to have slow response to questions. Per nursing staff has periods of confusion. She denies any fevers, chills, nausea, vomiting, diarrhea, SOB, cough or dysuria. Physical Exam Vital signs: Vital Signs 06/06/18 18:01 06/07/18 05:37 Temperature 97.6 F 98.0 F Pulse Rate 75 80 Respiratory Rate 17 15 Blood Pressure 113/71 138/72 Pulse Oximetry 95 93 L Intake & Output 06/06/18 06/07/18 06/07/18 18:59 06:59 18:59 Intake Total 720 / 720 460 / 460 Output Total Balance 720 / 720 459 / 459 Intake: Oral 720 / 720 360 / 360 Oral Supplement 100 / 100 Output: Urine Narrative: GENERAL: Elderly 68 year old female, well developed, in no acute distress. HEAD: Atraumatic. Normocephalic. EYES: EOMI. No scleral icterus. No injection or drainage. CARDIOVASCULAR: Regular rate and rhythm. RESPIRATORY: No accessory muscle use. Clear to auscultation. Breath sounds equal bilaterally. GASTROINTESTINAL: Abdomen soft, non-tender, nondistended.normoactive bowel sounds. MUSCULOSKELETAL: Extremities without clubbing, cyanosis, or edema. No obvious deformities. NEUROLOGICAL: Awake and alert, oriented to person place and time, per nursing has periods of confusion. No obvious cranial nerve deficits. Motor grossly within normal limits. slow speech. 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 [facility] consulted to assist with further evaluation of altered mental status, hypertension, and diabetes. AMS/confusion ?onset of Dementia -Labs unremarkable, CBC and CMP stable, toxicology screen negative. - Head CT with right sided CANDY ROLLING MACHINE OPERATOR shunt with the tip in the left lateral ventricle. Mild ventricular prominence with no priors to assess for changes. Chronic changes with moderately severe periventricular small vessel ischemic demyelination. Probable punctate old lacunar type infarcts in the basal ganglia bilaterally. - Check B12 > 2000 and folate > 20.0. Vitamin D level 67. UA sent however no reflux to culture. - Patient seen and evaluated by neurology, greatly appreciate assistance. - PRP Nonreactive, EEG draft report with mild slowing/mild encephalopathy vs medication effect. Ne epileptiform features. - Neurology also believes possibly early onset of dementia, CT with no increase in ventricles to suggest hydrocephalus. - Started on Namenda 5mg HS as recommended by neuro, increase to 5mg BID after a week. Hx DM Hx HTN HLD -Random blood sugars on lab work have been stable, hemoglobin A1c 6.4. Continue metformin 500 mg daily for now. -Continue Lopressor 12.5 mg twice daily -Continue Lipitor 40 mg at bedtime -Heart rate and blood pressure stable Poor p.o. intake -Patient pulling out IV, Megace for appetite started 06/06 - TID ensure with meals. DVT prophylaxis-ambulation From a medical standpoint patient may be transferred to regular psychiatric unit does not require medical psychiatric unit Discussed case with nursing staff, patient and supervising physician Dr. Bone
--- NOTE | 2018-06-07 16:27 | P.PNPSY ---
Subjective Remarks: Patient seen for follow, chart reviewed. Discussion nursing staff reported the patient attended group today seclusive, withdrawn continue with suicide ideation and poor p.o. intake alert and oriented 2. Patient was found lying hospital bed noted to be somnolent but able to wake up for interview today. Patient states that she had been feeling "crazy" was unable to recall the last time she had experienced auditory hallucinations but was able to state that she had been experiencing recently. Patient noted to have some difficulty organizing her thoughts during interview stated that she continues to feel depressed and having thoughts of not wanting to be alive. Patient was encouraged to continue treatment and continue to participate in groups and activities. Review of Systems All other systems reviewed negative except as stated in HPI Mental Status Examination Appearance: Appropriate Consciousness: Alert Orientation: Person, Place Speech: Slow Language: Adequate Fund of Knowledge: Poor Attention and Concentration: Inadequate Memory: Impaired Mood: Sad Affect: Sad Thought Process & Associations: Disorganized (At times) Thought Content: Bizarre thinking, Hallucinations, Delusional Hallucination Type: Auditory (Internally stimulated) Delusion Type: Paranoid (Less so today), Other (Unable to determine) Suicidal Ideation: Yes (Nonspecific) Suicidal Plan: No Suicidal Intention: No Homicidal Ideation: No Homicidal Plan: No Homicidal Intention: No Insight: Poor Judgment: Poor Assessment and Plan - Assessment (1) Major depressive disorder Code(s): F32.9 - Major depressive disorder, single episode, unspecified Status : Acute - Plan Plan: Patient this time continues to have some confusion being alert and oriented only to person and place. Patient continued to endorse depressed mood along with suicide ideations. We will increase sertraline to 75 mg p.o. daily and continue risperidone at 1 mg a.m./1.5 mg at bedtime for psychosis. Hospitalist input appreciated, neurologist input appreciated. We will continue to monitor mood and behavior. Discharge planning in progress. Justification for Continued Inpatient Stay: At risk of further decompensation a lower level of care. (1) Major depressive disorder Qualifiers: Major depression recurrence: recurrent Active/Remission status: currently active Major depression episode severity: severe Psychotic features: with psychotic features Qualified Code(s): F33.3 - Major depressive disorder, recurrent, severe with psychotic symptoms
--- NOTE | 2018-06-08 10:17 | P.PNPSY ---
Subjective Remarks: Patient seen for follow, chart reviewed. Discussion nursing staff reported the patient has stated less evening that someone was going to cut of her breast, continue with poor p.o. intake and pull out her IV less evening. Patient was found lying hospital bed asleep was able to wake up for interview today. Patient noted to have replaced IV line, noted be somewhat somnolent but able to answer questions today. Patient states that she continue to feel depressed and that she is "I am " continues to be alert and oriented only to person and place at this time. Patient apologetic during interview and reports continued auditory hallucinations but cannot recall the last time she heard them. Patient continues to have poverty of thought at this time along with some confusion but agrees to improve nutritional intake, maintain personal hygiene with showering today as well as attempt to participate in groups and activities. Review of Systems All other systems reviewed negative except as stated in HPI Mental Status Examination Appearance: Appropriate Consciousness: Alert Orientation: Person, Place Motor Activity: Other (Lying in bed) Speech: Slow Language: Adequate Fund of Knowledge: Poor Attention and Concentration: Inadequate Memory: Impaired Mood: Sad Affect: Sad Thought Process & Associations: Disorganized (At times) Thought Content: Bizarre thinking, Hallucinations (Lessening), Delusional Hallucination Type: Auditory (Appears to be lessening) Delusion Type: Paranoid (Less so today) Suicidal Ideation: Yes (Nonspecific) Suicidal Plan: No Suicidal Intention: No Homicidal Ideation: No Homicidal Plan: No Homicidal Intention: No Insight: Poor Judgment: Poor Assessment and Plan - Assessment (1) Major depressive disorder Code(s): F32.9 - Major depressive disorder, single episode, unspecified Status : Acute - Plan Plan: Patient is continuing to make bizarre statements, some disorganization and confusion still, noted to have less depressed mood, less auditory hallucinations but continues with suicide ideation. Medication dose recently adjusted, we will continue current treatment for now. We will continue to monitor mood and behavior. Encourage patient to maintain adequate p.o. intake as well as participation in groups and activities. Discharge planning in progress. Justification for Continued Inpatient Stay: At risk of further decompensation a lower level of care (1) Major depressive disorder Qualifiers: Major depression recurrence: recurrent Active/Remission status: currently active Major depression episode severity: severe Psychotic features: with psychotic features Qualified Code(s): F33.3 - Major depressive disorder, recurrent, severe with psychotic symptoms
[2018-06-08] MEDS: Tolterodine Tartrate LA 2 MG Capsule PO SCH ×2 (10:31→20:59)
[2018-06-08] MEDS: buPROPion 150 MG 12 HR Tablet PO SCH ×2 (10:33→20:59)
[2018-06-08] MEDS: Metoprolol Tartrate 25 MG Tablet PO SCH ×2 (10:33→21:00)
[2018-06-08] MEDS: Megestrol Acetate Liq 400 MG/10 ML UDC PO SCH (10:33)
[2018-06-08] MEDS: Sertraline 50 MG Tablet PO SCH (10:34)
[2018-06-09] MEDS: Dextrose 5%/NaCl 0.9% Inj 1,000 ML IV.CONT SCH ×2 (02:45→20:37)
[2018-06-09] MEDS: Tolterodine Tartrate LA 2 MG Capsule PO SCH ×2 (08:19→20:38)
[2018-06-09] MEDS: buPROPion 150 MG 12 HR Tablet PO SCH ×2 (08:20→20:37)
[2018-06-09] MEDS: Sertraline 50 MG Tablet PO SCH (08:20)
--- NOTE | 2018-06-09 14:39 | P.PNPSY ---
Subjective Remarks: Patient seen for follow, chart reviewed. Discussion nursing staff reported the patient shower yesterday, attended group 8 better but this morning noted be confused. Patient was found lying hospital bed noted B, cooperative. Patient continued to be noted to be's confused at times have difficulty recalling events prior to her admission, continues report feeling depressed along with statements of wanting to be stating "I want to go to sleep permanently". She mentions that she had been having suicide ideation since May was having difficulty recalling precipitating events during that time. She mentions that prior May she was doing "okay". She also continues to endorse auditory hallucinations which she last experienced this morning and states that she had "talked to the president, he said I was going to be killed". Patient was presented to mental health court which she was maintained on a continuance and had endorsed and court that she had thoughts of wanting to end her life. Review of Systems All other systems reviewed negative except as stated in HPI Mental Status Examination Appearance: Appropriate Consciousness: Alert Orientation: Person, Place Motor Activity: Other (Lying in bed) Speech: Slow Language: Adequate Fund of Knowledge: Poor Attention and Concentration: Inadequate Memory: Impaired Mood: Sad Affect: Sad Thought Process & Associations: Disorganized (At times) Thought Content: Bizarre thinking, Hallucinations (Lessening), Delusional Hallucination Type: Auditory (Appears to be lessening) Delusion Type: Paranoid (Less so today) Suicidal Ideation: Yes (Nonspecific) Suicidal Plan: No Suicidal Intention: No Homicidal Ideation: No Homicidal Plan: No Homicidal Intention: No Insight: Poor Judgment: Poor Assessment and Plan - Assessment (1) Major depressive disorder Code(s): F32.9 - Major depressive disorder, single episode, unspecified Status : Acute - Plan Plan: Patient continues to have psychotic symptoms as well as feeling depressed along with suicide ideations. We will continue to increase risperidone to 1 mg a.m./ 2 mg at bedtime for psychosis, continue rest of medications. Continue to monitor mood and behavior. Patient discharge planning in progress. Justification for Continued Inpatient Stay: At risk of further decompensation a lower level care. (1) Major depressive disorder Qualifiers: Major depression recurrence: recurrent Active/Remission status: currently active Major depression episode severity: severe Psychotic features: with psychotic features Qualified Code(s): F33.3 - Major depressive disorder, recurrent, severe with psychotic symptoms
[2018-06-09] MEDS: Metoprolol Tartrate 25 MG Tablet PO SCH ×2 (17:44→20:38)
[2018-06-09] MEDS: Megestrol Acetate Liq 400 MG/10 ML UDC PO SCH (17:45)
[2018-06-10] MEDS: Metoprolol Tartrate 25 MG Tablet PO SCH ×2 (09:17→21:13)
[2018-06-10] MEDS: Tolterodine Tartrate LA 2 MG Capsule PO SCH ×2 (09:18→21:54)
[2018-06-10] MEDS: Sertraline 50 MG Tablet PO SCH (09:19)
[2018-06-10] MEDS: Megestrol Acetate Liq 400 MG/10 ML UDC PO SCH (09:19)
[2018-06-10] MEDS: buPROPion 150 MG 12 HR Tablet PO SCH ×2 (09:20→21:53)
--- NOTE | 2018-06-10 14:57 | P.PNPSY ---
Subjective Remarks: Patient seen for follow, chart reviewed. Discussion nursing staff reported the patient continues with flat affect attending group yesterday, compliant with medication denying any suicide ideation, accepted IV line, but did not eat breakfast this morning. Patient was found lying hospital bed noted to be, cooperative. He was able to engage in interview today. Patient states that she was feeling confused about proceeding yesterday in court and asks "this is reality right". Patient states that she had difficult to be less evening and that her mood has been "scary" but denying any perceptional services but noted to be somewhat disorganized when patient tries to recall events. Patient continues to endorse suicide ideation stated that she would just like have a knife and made motions as a stabbing herself. Review of Systems All other systems reviewed negative except as stated in HPI Mental Status Examination Appearance: Appropriate Consciousness: Alert Orientation: Person, Place Motor Activity: Other (Lying in bed) Speech: Slow Language: Adequate Fund of Knowledge: Poor Attention and Concentration: Inadequate Memory: Impaired Mood: Sad Affect: Sad Thought Process & Associations: Disorganized (At times) Thought Content: Bizarre thinking, Hallucinations (Lessening), Delusional Hallucination Type: Auditory (denies today) Delusion Type: Paranoid (Less so today) Suicidal Ideation: Yes Suicidal Plan: No Suicidal Intention: No Homicidal Ideation: No Homicidal Plan: No Homicidal Intention: No Insight: Poor Judgment: Poor Assessment and Plan - Assessment (1) Major depressive disorder Code(s): F32.9 - Major depressive disorder, single episode, unspecified Status : Acute - Plan Plan: Patient continued with depressed mood and continue with active suicide ideations which patient will need to continue one-to-one observation for safety. Patient having less of the about 2 hallucinations. We will continue to increase Zoloft to 100 mg p.o. daily, continue rest of medications. Continue to monitor mood and behavior. Discharge planning a progress. Justification for Continued Inpatient Stay: At risk of further decompensation a lower level of care. (1) Major depressive disorder Qualifiers: Major depression recurrence: recurrent Active/Remission status: currently active Major depression episode severity: severe Psychotic features: with psychotic features Qualified Code(s): F33.3 - Major depressive disorder, recurrent, severe with psychotic symptoms
[2018-06-10] MEDS: Dextrose 5%/NaCl 0.9% Inj 1,000 ML IV.CONT SCH (17:32)
[2018-06-11] MEDS: Dextrose 5%/NaCl 0.9% Inj 1,000 ML IV.CONT SCH ×2 (04:14→17:43)
--- NOTE | 2018-06-11 08:01 | P.PNPSY ---
Subjective Chief Complaint: Rounded on patient with Karen SOLIMAN. Patient is in bed and refusing to speak with provider. She has her head under the covers and covering her face. She continues to have a one on one sitter. Nursing staff states that she is very sad with flat and blunted affect. There are no behavioral concerns and she is cooperative. She continues to make gestures that she would do self-harm to herself. She must be strongly encouraged to eat. Per previous notes she has had a medication increase of Zoloft . We will continue to monitor and provide a safe and comforting environment. Patient will be encouraged to get out of bed and participate in activities on the unit. Remarks: Patient is stable. Review of Systems All other systems reviewed negative except as stated in HPI Mental Status Examination Appearance: Appropriate Consciousness: Alert Orientation: Person, Place Motor Activity: Other (Lying in bed) Speech: Slow Language: Adequate Fund of Knowledge: Poor Attention and Concentration: Inadequate Memory: Impaired Mood: Sad Affect: Sad Thought Process & Associations: Disorganized (At times) Thought Content: Bizarre thinking, Hallucinations (Lessening), Delusional Hallucination Type: Auditory (denies today) Delusion Type: Paranoid (unable to determine level of paranoia at this time) Suicidal Ideation: Yes Suicidal Plan: No Suicidal Intention: No Homicidal Ideation: No Homicidal Plan: No Homicidal Intention: No Insight: Poor Judgment: Poor Assessment and Plan - Assessment (1) Major depressive disorder Code(s): F32.9 - Major depressive disorder, single episode, unspecified Status : Acute - Plan Plan: Patient continued with depressed mood and continue with active suicide ideations which patient will need to continue one-to-one observation for safety. Zoloft has been increased. Continue to monitor mood and behavior. Discharge planning a progress. Justification for Continued Inpatient Stay: Moving patient to a lower level of care may result in her decompensation. (1) Major depressive disorder Qualifiers: Major depression recurrence: recurrent Active/Remission status: currently active Major depression episode severity: severe Psychotic features: with psychotic features Qualified Code(s): F33.3 - Major depressive disorder, recurrent, severe with psychotic symptoms
[2018-06-11] MEDS: Tolterodine Tartrate LA 2 MG Capsule PO SCH (10:50)
[2018-06-11] MEDS: Metoprolol Tartrate 25 MG Tablet PO SCH (10:53)
[2018-06-11] MEDS: Megestrol Acetate Liq 400 MG/10 ML UDC PO SCH (10:54)
[2018-06-11] MEDS: buPROPion 150 MG 12 HR Tablet PO SCH (10:54)
[2018-06-11] MEDS: Sertraline 50 MG Tablet PO SCH (10:55)
[2018-06-12] MEDS: Tolterodine Tartrate LA 2 MG Capsule PO SCH ×2 (11:24→21:54)
[2018-06-12] MEDS: Metoprolol Tartrate 25 MG Tablet PO SCH ×2 (11:24→21:53)
[2018-06-12] MEDS: buPROPion 150 MG 12 HR Tablet PO SCH ×2 (11:25→21:54)
[2018-06-12] MEDS: Sertraline 50 MG Tablet PO SCH (11:25)
[2018-06-12] MEDS: Megestrol Acetate Liq 400 MG/10 ML UDC PO SCH (11:25)
[2018-06-12] MEDS: Dextrose 5%/NaCl 0.9% Inj 1,000 ML IV.CONT SCH (14:15)
--- NOTE | 2018-06-12 18:25 | P.PNPSY ---
Subjective Chief Complaint: Rounded on patient with Karen SOLIMAN. Patient is in bed and refusing to speak with provider. She has her head under the covers and covering her face. She continues to have a one on one sitter. Nursing staff states that she is very sad with flat and blunted affect. There are no behavioral concerns and she is cooperative. She continues to make gestures that she would do self-harm to herself. She must be strongly encouraged to eat. Per previous notes she has had a medication increase of Zoloft . We will continue to monitor and provide a safe and comforting environment. Patient will be encouraged to get out of bed and participate in activities on the unit. Remarks: Reviewed electronic medical records and discussed case with staff. Follow-up was conducted in patient's room with nurse present. Patient was found lying on bed awake. She is alert and oriented to self only. Her nurse reported that she has been intermittently doing better and worse day by day. She advises that she has had the patient for the past 3 days and the patient ranges from being compliant with medication and seeming to be stabilizing and then slips back into refusing her medications and acting confused. Today patient is communicating. She does seem internally stimulated and there appears to be some thought blocking present. However, she is able to make some sense and is asking how long I believe she will have to stay and where she will go when she is discharged. There does seem to be some delusion present as she reports to me that she "committed a crime against humanity". She goes on to talk about universities and "worldwide problems". Mental Status Examination Appearance: Appropriate Consciousness: Alert Orientation: Person, Place Motor Activity: Other (Lying in bed) Speech: Slow Language: Adequate Fund of Knowledge: Poor Attention and Concentration: Inadequate Memory: Impaired Mood: Sad Affect: Sad Thought Process & Associations: Disorganized (At times) Thought Content: Bizarre thinking, Hallucinations (Lessening), Delusional Hallucination Type: Auditory (denies today) Delusion Type: Paranoid (unable to determine level of paranoia at this time) Suicidal Ideation: Yes Suicidal Plan: No Suicidal Intention: No Homicidal Ideation: No Homicidal Plan: No Homicidal Intention: No Insight: Poor Judgment: Poor Assessment and Plan - Assessment (1) Unspecified psychosis Code(s): F29 - Unspecified psychosis not due to a substance or known physiological condition Status: Acute - Plan Plan: Patient will be reevaluated tomorrow by the attending psychiatrist. Continue with current treatment plan. Justification for Continued Inpatient Stay: Moving this patient to a less restrictive environment would likely result in decompensation.
[2018-06-13] MEDS: Tolterodine Tartrate LA 2 MG Capsule PO SCH ×3 (05:52→20:52)
[2018-06-13] MEDS: buPROPion 150 MG 12 HR Tablet PO SCH ×3 (05:52→20:52)
[2018-06-13] MEDS: Metoprolol Tartrate 25 MG Tablet PO SCH ×3 (05:52→20:52)
[2018-06-13] MEDS: Megestrol Acetate Liq 400 MG/10 ML UDC PO SCH (10:59)
[2018-06-13] MEDS: Sertraline 50 MG Tablet PO SCH (11:00)
[2018-06-13] MEDS: Dextrose 5%/NaCl 0.9% Inj 1,000 ML IV.CONT SCH (11:00)
--- NOTE | 2018-06-13 17:26 | P.PNPSY ---
Subjective Remarks: Patient seen for follow up; chart reviewed. Discussion with nursing staff reported that patient attending groups, seclusive at times, intermittent compliance with medications, poor PO intake. Patient seen with nurse and medical students and noted with brighter affect today, smiling at times. Patient continues with disorganization at times but states that she continues with AH telling her "negative things", and states that she feels under pressure because the oice will harm her physically although states that the voice has not harmed her before. She goes on to state that the idea is far-fetched. Review of Systems All other systems reviewed negative except as stated in HPI Mental Status Examination Appearance: Appropriate Consciousness: Alert Orientation: Person, Place Motor Activity: Other (Lying in bed) Speech: Slow Language: Adequate Fund of Knowledge: Poor Attention and Concentration: Inadequate Memory: Impaired Mood: Sad Affect: Sad Thought Process & Associations: Disorganized (At times) Thought Content: Bizarre thinking, Hallucinations (Lessening), Delusional Hallucination Type: Auditory (denies today) Delusion Type: Paranoid (unable to determine level of paranoia at this time) Suicidal Ideation: Yes Suicidal Plan: No Suicidal Intention: No Homicidal Ideation: No Homicidal Plan: No Homicidal Intention: No Insight: Poor Judgment: Poor Assessment and Plan - Assessment (1) Major depressive disorder Code(s): F32.9 - Major depressive disorder, single episode, unspecified Status : Acute - Plan Plan: Patient continues with bizarre delusions, AH and disorganized at times but noted with improved affect, more engaging in interview and more participation in groups; continues with poor PO intake. Will increase risperidone to 1.5mg a.m./2mg HS for psychosis. Will request dispensing lead consult for poor PO intake. Continue rest of medications. Continue to monitor mood and behavior. Discharge planning in progress. Justification for Continued Inpatient Stay: At risk for further decompensation at lower level of care. (1) Major depressive disorder Qualifiers: Major depression recurrence: recurrent Active/Remission status: currently active Major depression episode severity: severe Psychotic features: with psychotic features Qualified Code(s): F33.3 - Major depressive disorder, recurrent, severe with psychotic symptoms
[2018-06-14] MEDS: Dextrose 5%/NaCl 0.9% Inj 1,000 ML IV.CONT SCH ×3 (01:42→20:48)
[2018-06-14] MEDS: Megestrol Acetate Liq 400 MG/10 ML UDC PO SCH (09:20)
[2018-06-14] MEDS: Metoprolol Tartrate 25 MG Tablet PO SCH ×2 (09:20→20:32)
[2018-06-14] MEDS: Tolterodine Tartrate LA 2 MG Capsule PO SCH ×2 (09:21→20:32)
[2018-06-14] MEDS: buPROPion 150 MG 12 HR Tablet PO SCH ×2 (09:21→20:32)
[2018-06-14] MEDS: Sertraline 50 MG Tablet PO SCH (09:21)
--- NOTE | 2018-06-14 16:07 | P.PNPSY ---
Subjective Remarks: Patient seen for follow, chart reviewed. Discussion nursing staff reported the patient shower yesterday attending groups and compliant with medication but continues with poor motivation. Patient was found sitting in hospital bed eating lunch noted B, cooperative. Patient continued to have some difficulty with organizing her thoughts during interview, with repeated apologies stating that she is unable to say everything she wants to say but did not elaborate. Patient states that her sleep has been "not good" and that her mood has been up and down but denying any auditory hallucinations but only hearing "music" last evening. Patient appears to be more responsive during interview other continues to have some disorganization and poverty of thought. Review of Systems All other systems reviewed negative except as stated in HPI Mental Status Examination Appearance: Appropriate Consciousness: Alert Orientation: Person, Place Motor Activity: Other (Lying in bed) Speech: Slow Language: Adequate Fund of Knowledge: Poor Attention and Concentration: Inadequate Memory: Impaired Mood: Sad Affect: Sad Thought Process & Associations: Disorganized (At times) Thought Content: Bizarre thinking, Hallucinations (Lessening), Delusional Hallucination Type: Auditory (denies today) Delusion Type: Paranoid (unable to determine level of paranoia at this time) Suicidal Ideation: Yes Suicidal Plan: No Suicidal Intention: No Homicidal Ideation: No Homicidal Plan: No Homicidal Intention: No Insight: Poor Judgment: Poor Assessment and Plan - Assessment (1) Major depressive disorder Code(s): F32.9 - Major depressive disorder, single episode, unspecified Status : Acute - Plan Plan: Patient continues with some disorganization and poverty of thought but noted to be more responsive friend with better affect. Patient denying any auditory hallucinations since last night. We will continue current treatment for now. We will continue to monitor mood and behavior. We will continue one-to-one observation for safety, we will continue encourage patient to participate in groups and activities. Discharge planning a progress. Justification for Continued Inpatient Stay: At risk for further decompensation if at lower level of care (1) Major depressive disorder Qualifiers: Major depression recurrence: recurrent Active/Remission status: currently active Major depression episode severity: severe Psychotic features: with psychotic features Qualified Code(s): F33.3 - Major depressive disorder, recurrent, severe with psychotic symptoms
--- NOTE | 2018-06-14 18:17 | P.DIET ---
Nutritional Evaluation Type of nutrition evaluation: initial Nutrition consult regarding: Diet Evaluation Nutrition screening: [place] (06/13/18 [place] Poor PO Intake) Subjective Barriers to Nutrition: Refuses to eat at times Subjective Comments: Pt eating dinner when visited. Sitter at bedside. Pt says she likes the Ensure drink. Pt provided a few food preferences during this visit. JANNY Vargas says that pt refused breakfast today d/t she was sleeping and needs encouragement to wake up and have po intake. Discussed changing oral nutrition supplement from Ensure to Glucerna Shake w/JANNY Vargas. Objective - Diagnosis Psychosis NOS - Objective [place] body weight: 59 kg % IBW: 126 Body Weight Used for Calculations: IBW (IBW 59kg(130-lb)) Energy Needs - Lower Range (kCal/kg): 25 Energy Needs - Upper Range (kCal/kg): 30 Lower Limit kCal/kg (kCals): 1,475 Upper Limit kCal/kg (kCals): 1,770 Lower Limit Protein Factor (Grams per Kg): 1.1 Upper Limit Protein Factor (Grams per Kg): 1.4 Lower Protein Needs (Protein): 65 Upper Protein Needs (Protein): 83 Fluid Factor (ml/kg): 30 Estimated Fluid Needs (ml): 1,770 Dietitian Reviewed in Medical Record: Current diet, Curent medications, Intake & Output, Labs, Medical history Diet Order: Regular Objective Comments: PMH: Anxiety, Depression, DM, HTN, Hyperlipidemia Meds Include: Megace, Lipitor, Metformin, Risperdol A1C 6.3 Feeding - Current PO Supplement Current Supplement: Ensure Original Current Supplement Flavor: Chocolate Current Frequency of Supplement: Three times a day Current kCals Provided by Supplement: 250 Current Protein Provided by Supplement: 9 Supplement Comments: 32g CHO Assessment Assessment: Pt is at nutritional risk r/t poor po intake, 0-100% for meals. [place] pt's food preferences to assist w/increased po intake. Replace Ensure w/Glucerna Shakes tid r/t pt has a h/o DM. Accuchecks are not ordered currently. For a CHO controlled diet Rec 1800ADA. Labs reviewed. Dietitian will follow. Recommendations: 1.[place] pt's food preferences to assist w/increased po intake 2.Replace Ensure w/Glucerna Shakes tid r/t pt has a h/o DM 3.For a CHO controlled diet Rec 1800ADA 4.Dietitian will follow Dietitian to Monitor: Lab values, Glucose level, Supplement acceptance, Intake & Output, Weight change, PO Intake
[2018-06-15] MEDS: Metoprolol Tartrate 25 MG Tablet PO SCH ×2 (08:38→21:03)
[2018-06-15] MEDS: Sertraline 50 MG Tablet PO SCH (08:38)
[2018-06-15] MEDS: buPROPion 150 MG 12 HR Tablet PO SCH ×2 (08:38→21:03)
[2018-06-15] MEDS: Megestrol Acetate Liq 400 MG/10 ML UDC PO SCH (08:38)
--- NOTE | 2018-06-15 12:25 | P.PNPSY ---
Subjective Remarks: Patient seen for follow, chart reviewed. Discussion nursing staff reported the patient continues to have intermittent suicide ideations, is eating better, will continue to require encouragement for nutritional intake as well as to attend groups. Patient was found lying hospital bed early this morning superficially cooperative stating that she is feeling sleepy this morning. Patient states she is feeling "okay" reports having slept yesterday and states having had suicide ideation yesterday but that "it did not last long". Patient states she is feeling less depressed, denying any auditory hallucinations today last time being yesterday. Patient states feeling that she is doing better, having bowel movements and improved appetite. Review of Systems All other systems reviewed negative except as stated in HPI Mental Status Examination Appearance: Appropriate Consciousness: Alert Orientation: Person, Place Motor Activity: Other (Lying in bed) Speech: Slow Language: Adequate Fund of Knowledge: Poor Attention and Concentration: Inadequate Memory: Impaired Mood: Sad (Lessening) Affect: Sad Thought Process & Associations: Disorganized (At times) Thought Content: Bizarre thinking, Hallucinations (Lessening), Delusional Hallucination Type: Auditory (denies today) Delusion Type: Paranoid (Lessening) Suicidal Ideation: Yes (Intermittent) Suicidal Plan: No Suicidal Intention: No Homicidal Ideation: No Homicidal Plan: No Homicidal Intention: No Insight: Poor Judgment: Poor Assessment and Plan - Assessment (1) Major depressive disorder Code(s): F32.9 - Major depressive disorder, single episode, unspecified Status : Acute - Plan Plan: Patient this time continues requiring encouragement and prompting to improve nutritional intake although patient states that her appetite is improving. Patient continues on IV fluids due to the same. Patient also requires encouragement to attend groups and that she is feeling less depressed than decrease in suicide ideations which now are intermittent. Patient did not endorse any perceptional services today. We will continue current treatment. We will continue to monitor mood and behavior. Discharge planning a progress. Justification for Continued Inpatient Stay: At risk of further decompensation a lower level of care. (1) Major depressive disorder Qualifiers: Major depression recurrence: recurrent Active/Remission status: currently active Major depression episode severity: severe Psychotic features: with psychotic features Qualified Code(s): F33.3 - Major depressive disorder, recurrent, severe with psychotic symptoms
[2018-06-15] MEDS: Tolterodine Tartrate LA 2 MG Capsule PO SCH ×2 (15:28→21:03)
[2018-06-16] MEDS: Metoprolol Tartrate 25 MG Tablet PO SCH ×2 (09:02→20:53)
[2018-06-16] MEDS: Sertraline 50 MG Tablet PO SCH (09:02)
[2018-06-16] MEDS: buPROPion 150 MG 12 HR Tablet PO SCH ×2 (09:02→20:54)
[2018-06-16] MEDS: Megestrol Acetate Liq 400 MG/10 ML UDC PO SCH (09:03)
--- NOTE | 2018-06-16 14:30 | P.PNPSY ---
Subjective Remarks: Patient seen for follow, chart reviewed. Discussion nursing staff reported the patient attending groups yesterday, was ambulatory more and met with the assisted living facility client support representative. Patient this morning was found lying hospital bed noted to be calm, superficially cooperative that she was mostly somnolent but was able to wake up to participate. Patient states she is attending groups yesterday, denying hallucinations today, denying suicide ideations and states her mood has been "okay". Patient states he will continue to the same as yesterday, increase nutritional intake and participating groups and activities. Review of Systems All other systems reviewed negative except as stated in HPI Mental Status Examination Appearance: Appropriate Consciousness: Alert Orientation: Person, Place Motor Activity: Other (Lying in bed) Speech: Slow Language: Adequate Fund of Knowledge: Poor Attention and Concentration: Inadequate Memory: Impaired Mood: Other ("ok") Affect: Blunt Thought Process & Associations: Disorganized (lessening) Thought Content: Bizarre thinking, Delusional Hallucination Type: None Delusion Type: Paranoid (Lessening) Suicidal Ideation: Yes (denies today) Suicidal Plan: No Suicidal Intention: No Homicidal Ideation: No Homicidal Plan: No Homicidal Intention: No Insight: Poor Judgment: Poor Assessment and Plan - Assessment (1) Major depressive disorder Code(s): F32.9 - Major depressive disorder, single episode, unspecified Status : Acute - Plan Plan: Patient appears to have improved mood, denying any suicide ideations and no longer endorsing auditory hallucinations today. We will continue current treatment. Continue to monitor mood and behavior. Continue to encourage patient with history in groups and activities on the unit. Discharge planning in progress. Justification for Continued Inpatient Stay: At risk for further decompensation if at lower level of care. (1) Major depressive disorder Qualifiers: Major depression recurrence: recurrent Active/Remission status: currently active Major depression episode severity: severe Psychotic features: with psychotic features Qualified Code(s): F33.3 - Major depressive disorder, recurrent, severe with psychotic symptoms
[2018-06-16] MEDS: Tolterodine Tartrate LA 2 MG Capsule PO SCH (20:53)
[2018-06-17] MEDS: Tolterodine Tartrate LA 2 MG Capsule PO SCH ×2 (08:46→21:02)
[2018-06-17] MEDS: buPROPion 150 MG 12 HR Tablet PO SCH ×2 (08:46→21:02)
[2018-06-17] MEDS: Metoprolol Tartrate 25 MG Tablet PO SCH ×2 (08:47→21:02)
[2018-06-17] MEDS: Sertraline 50 MG Tablet PO SCH (08:50)
[2018-06-17] MEDS: Megestrol Acetate Liq 400 MG/10 ML UDC PO SCH (09:18)
--- NOTE | 2018-06-17 11:16 | P.PNPSY ---
Subjective Chief Complaint: Rounded on patient with Karen SOLIMAN. Patient is in bed and refusing to speak with provider. She has her head under the covers and covering her face. She continues to have a one on one sitter. Nursing staff states that she is very sad with flat and blunted affect. There are no behavioral concerns and she is cooperative. She continues to make gestures that she would do self-harm to herself. She must be strongly encouraged to eat. Per previous notes she has had a medication increase of Zoloft . We will continue to monitor and provide a safe and comforting environment. Patient will be encouraged to get out of bed and participate in activities on the unit. Remarks: Reviewed electronic medical records and discussed case with staff. Follow-up was conducted in patient's room with nurse present. Patient's nurse reports that she has been flat and depressed but compliant with her medications. She did attend fresh air yesterday. Advised that the tentative plan is for her to be transferred to an SNF on Wednesday. Patient was found lying on the bed she states that she has been sleeping "so-so". And that her appetite is been "okay ". She does report feeling anxious most of the time. Her mood at this time is good and her affect is euthymic. She seems improved from the last time I saw her. Mental Status Examination Appearance: Appropriate Consciousness: Alert Orientation: Person, Place Motor Activity: Other (Lying in bed) Speech: Slow Language: Adequate Fund of Knowledge: Poor Attention and Concentration: Inadequate Memory: Impaired Mood: Other ("ok") Affect: Blunt Thought Process & Associations: Disorganized (lessening) Thought Content: Bizarre thinking, Delusional Hallucination Type: None Delusion Type: Paranoid (Lessening) Suicidal Ideation: Yes (denies today) Suicidal Plan: No Suicidal Intention: No Homicidal Ideation: No Homicidal Plan: No Homicidal Intention: No Insight: Poor Judgment: Poor Assessment and Plan - Assessment (1) Unspecified psychosis Code(s): F29 - Unspecified psychosis not due to a substance or known physiological condition Status: Acute - Plan Plan: Patient will be reevaluated Wednesday by the attending psychiatrist. Continue with current treatment plan. Sounds as though the patient should be discharged Wednesday to an appropriate [facility]. Justification for Continued Inpatient Stay: Moving this patient to a less restrictive environment would likely result in decompensation.
[2018-06-17] MEDS: LORazepam 0.5 MG Tablet PO PRN (21:03)
[2018-06-18] MEDS: Sertraline 50 MG Tablet PO SCH (09:47)
[2018-06-18] MEDS: Megestrol Acetate Liq 400 MG/10 ML UDC PO SCH (09:47)
[2018-06-18] MEDS: buPROPion 150 MG 12 HR Tablet PO SCH ×2 (09:47→20:57)
[2018-06-18] MEDS: Tolterodine Tartrate LA 2 MG Capsule PO SCH ×3 (09:47→20:57)
[2018-06-18] MEDS: Metoprolol Tartrate 25 MG Tablet PO SCH ×2 (09:48→20:57)
--- NOTE | 2018-06-18 18:50 | P.PNPSY ---
Subjective Chief Complaint: Rounded on patient with Karen SOLIMAN. Patient is in bed and refusing to speak with provider. She has her head under the covers and covering her face. She continues to have a one on one sitter. Nursing staff states that she is very sad with flat and blunted affect. There are no behavioral concerns and she is cooperative. She continues to make gestures that she would do self-harm to herself. She must be strongly encouraged to eat. Per previous notes she has had a medication increase of Zoloft . We will continue to monitor and provide a safe and comforting environment. Patient will be encouraged to get out of bed and participate in activities on the unit. Remarks: Patient was seen and case discussed with nursing. Note was reviewed from yesterday. Today, patient once again makes various suicidal statements. Patient says that there is nothing to hurt yourself with in her room but if there was she would do it. I then placed my pen next to her and said if this plan was a knife and you are at home and patient took the pen (which is capped ) and stabbed herself in the stomach multiple times. She remains quite depressed with the flat and anxious affect Mental Status Examination Appearance: Appropriate Consciousness: Alert Orientation: Person, Place Motor Activity: Other (Lying in bed) Speech: Slow Language: Adequate Fund of Knowledge: Poor Attention and Concentration: Inadequate Memory: Impaired Mood: Other ("ok") Affect: Blunt Thought Process & Associations: Disorganized (lessening) Thought Content: Bizarre thinking, Delusional Hallucination Type: None Delusion Type: Paranoid (Lessening) Suicidal Ideation: Yes (denies today) Suicidal Plan: No Suicidal Intention: Yes Homicidal Ideation: No Homicidal Plan: No Homicidal Intention: No Insight: Poor Judgment: Poor Assessment and Plan - Assessment (1) Major depressive disorder Code(s): F32.9 - Major depressive disorder, single episode, unspecified Status : Acute - Plan Plan: We will resume a one-to-one Justification for Continued Inpatient Stay: Patient would decompensate in a less restrictive setting (1) Major depressive disorder Qualifiers: Major depression recurrence: recurrent Active/Remission status: currently active Major depression episode severity: severe Psychotic features: with psychotic features Qualified Code(s): F33.3 - Major depressive disorder, recurrent, severe with psychotic symptoms
[2018-06-19] MEDS: Megestrol Acetate Liq 400 MG/10 ML UDC PO SCH (08:49)
[2018-06-19] MEDS: Tolterodine Tartrate LA 2 MG Capsule PO SCH ×2 (08:49→20:36)
[2018-06-19] MEDS: buPROPion 150 MG 12 HR Tablet PO SCH ×2 (08:49→20:36)
[2018-06-19] MEDS: Metoprolol Tartrate 25 MG Tablet PO SCH ×2 (08:49→20:35)
[2018-06-19] MEDS: Sertraline 50 MG Tablet PO SCH (08:51)
--- NOTE | 2018-06-19 16:45 | P.PNPSY ---
Subjective Chief Complaint: Rounded on patient with Karen SOLIMAN. Patient is in bed and refusing to speak with provider. She has her head under the covers and covering her face. She continues to have a one on one sitter. Nursing staff states that she is very sad with flat and blunted affect. There are no behavioral concerns and she is cooperative. She continues to make gestures that she would do self-harm to herself. She must be strongly encouraged to eat. Per previous notes she has had a medication increase of Zoloft . We will continue to monitor and provide a safe and comforting environment. Patient will be encouraged to get out of bed and participate in activities on the unit. Remarks: Patient was seen and case discussed with nursing. Patient appears quite delusional. She has a fixed believe that she is supposed to because she has spread lies and talked about the leadership here. It appears that her suicidal ideation plan and intent which continue to be present are secondary to psychosis. She continues to be monitored by her one-to-one Mental Status Examination Appearance: Appropriate Consciousness: Alert Orientation: Person, Place Motor Activity: Other (Lying in bed) Speech: Slow Language: Adequate Fund of Knowledge: Poor Attention and Concentration: Inadequate Memory: Impaired Mood: Other ("ok") Affect: Blunt Thought Process & Associations: Disorganized (lessening) Thought Content: Bizarre thinking, Delusional Hallucination Type: None Delusion Type: Paranoid (Lessening) Suicidal Ideation: Yes (denies today) Suicidal Plan: No Suicidal Intention: Yes Homicidal Ideation: No Homicidal Plan: No Homicidal Intention: No Insight: Poor Judgment: Poor Assessment and Plan - Assessment (1) Major depressive disorder Code(s): F32.9 - Major depressive disorder, single episode, unspecified Status : Acute - Plan Plan: Consider increasing Risperdal dose or changing to another antipsychotic Justification for Continued Inpatient Stay: Patient would decompensate in a less restrictive setting (1) Major depressive disorder Qualifiers: Major depression recurrence: recurrent Active/Remission status: currently active Major depression episode severity: severe Psychotic features: with psychotic features Qualified Code(s): F33.3 - Major depressive disorder, recurrent, severe with psychotic symptoms
[2018-06-19] MEDS: LORazepam 0.5 MG Tablet PO PRN (18:31)
[2018-06-20] MEDS: Tolterodine Tartrate LA 2 MG Capsule PO SCH ×2 (09:28→20:48)
[2018-06-20] MEDS: Metoprolol Tartrate 25 MG Tablet PO SCH ×2 (09:28→20:48)
[2018-06-20] MEDS: Sertraline 50 MG Tablet PO SCH (09:29)
[2018-06-20] MEDS: Megestrol Acetate Liq 400 MG/10 ML UDC PO SCH (09:29)
[2018-06-20] MEDS: buPROPion 150 MG 12 HR Tablet PO SCH ×2 (09:29→20:48)
--- NOTE | 2018-06-20 16:48 | P.PNPSY ---
Subjective Remarks: Patient seen for follow, chart reviewed. Discussion nursing staff reported the patient was tearful less evening, was seclusive to room had one-to-one discontinued yesterday. Over the weekend patient had stated that if she had a knife that she would use it on herself motioning stabbing herself. Patient was found sitting hospital chair watching television noted B, cooperative. Patient states that she had been feeling "confused" although she is alert and oriented 3. When asked about the weekend she stated "a lot happened". Patient states feeling scared to "talk out of place". And mentioning not wanting to say negative comments. Patient stated her mood has been up and down but generally feeling "not well" along with continue suicide ideations intermittently last time being this morning which she states comes and goes. Patient states that she has fear that someone is going to kill her she stated which she states she does not know who and that everyone is against her. Review of Systems All other systems reviewed negative except as stated in HPI Mental Status Examination Appearance: Appropriate Consciousness: Alert Orientation: Person, Place Motor Activity: Other (Lying in bed) Speech: Slow Language: Adequate Fund of Knowledge: Poor Attention and Concentration: Inadequate Memory: Impaired Mood: Other ("ok") Affect: Blunt Thought Process & Associations: Disorganized (lessening) Thought Content: Bizarre thinking, Delusional Hallucination Type: None Delusion Type: Paranoid (Lessening) Suicidal Ideation: Yes (intermittent) Suicidal Plan: No (intermittent) Suicidal Intention: No Homicidal Ideation: No Homicidal Plan: No Homicidal Intention: No Insight: Poor (improving) Judgment: Poor Assessment and Plan - Assessment (1) Major depressive disorder Code(s): F32.9 - Major depressive disorder, single episode, unspecified Status : Acute - Plan Plan: Patient this time continues with some disorganization feeling confused as well as to continue paranoid ideations of delusions that someone is trying to kill her. We will increase risperidone to 2 mg p.o. twice daily for psychosis, continue rest of medications. We will continue to monitor mood and behavior. Discharge planning in progress. Justification for Continued Inpatient Stay: At risk for further decompensation if at lower level of care (1) Major depressive disorder Qualifiers: Major depression recurrence: recurrent Active/Remission status: currently active Major depression episode severity: severe Psychotic features: with psychotic features Qualified Code(s): F33.3 - Major depressive disorder, recurrent, severe with psychotic symptoms
[2018-06-20] MEDS: LORazepam 0.5 MG Tablet PO PRN (20:48)
[2018-06-21] MEDS: Megestrol Acetate Liq 400 MG/10 ML UDC PO SCH (09:01)
[2018-06-21] MEDS: buPROPion 150 MG 12 HR Tablet PO SCH (09:02)
[2018-06-21] MEDS: Tolterodine Tartrate LA 2 MG Capsule PO SCH (09:02)
[2018-06-21] MEDS: Sertraline 50 MG Tablet PO SCH (09:02)
[2018-06-21] MEDS: Metoprolol Tartrate 25 MG Tablet PO SCH (09:02)
--- NOTE | 2018-06-21 14:48 | P.DSPSY ---
Psychiatry Discharge Summary Inpatient Psychiatric care?: Yes Advance Directives: No Reason for Unknown:: Other Other Reason for Unknown: pt is not agreeable to answering questions at this time Mental Health Advance Directive: No Health Care Proxy: No - Admission Admission Date: May 31, 2018 15:39 - Admission Diagnosis (1) Major depressive disorder Code(s): F32.9 - Major depressive disorder, single episode, unspecified Brief History: Patient is a 68-year-old woman, domiciled alone, with a past psychiatric history of depression and anxiety, schizophrenia as per collateral formation, unclear previous psychiatric admissions, denies any previous suicide attempts, who presented to the ED under [facility] for suicide ideations. As per chart patient had visited the ED in 3 separate occasions within 1 week span and recently had her brought in under [facility] after D[facility] worker [facility] come into the hospital for evaluation. As per chart patient with history of schizophrenia/bipolar disorder , had not been able to garbage pick up man her prescriptions at the pharmacy for risperidone as prescribed by her outpatient physician. Patient has history of cervical shunt, recent CT scan showed right PRESS SMITH HELPER shunt, chronic changes with moderately severe periventricular small vessel ischemic demyelination, probable punctate old lacunar type infarcts in basal ganglia bilaterally. Patient was found sitting in hospital bed noted to be having difficulty with engaging interview noted to be distressed and paranoid. Patient states that after she had been seen in the ER she had planned to go to her psychiatrist but had a transportation which she had called her cousin stated that she did not feel well. Patient this time is alert and oriented 3, and states "whatever I say some negative, it heads me in the face". Patient also states that "negativity always follows me". Patient continues report feeling depressed as well as noted to be paranoid stating "I have been labeled", "just kill me, just kill me! " Patient was not able to tolerate further review at history had been limited due to patient's ongoing symptomatology. Tobacco Use In Past 30 Days: No How Often Do You Have a Drink Containing Alcohol: Unable to Obtain Hospital Course: Patient is a 68-year-old woman, domiciled alone, with a past psychiatric history of depression and anxiety, schizophrenia as per collateral formation, unclear previous psychiatric admissions, denies any previous suicide attempts, who presented to the ED under [facility] for suicide ideations. As per chart patient had visited the ED in 3 separate occasions within 1 week span and recently had her brought in under [facility] after DCF worker have [facility] had patient come into the hospital for evaluation which patient was admitted to the inpatient psychiatry unit for further evaluation and management. Patient was started on Risperidone and titrated to 2mg PO BID, continued on buproprion SR and titrated to 300mg PO BID and sertraline and titrated to 100mg PO daily along with continued medications for chronic medical illnesses. Patient was started on Megace by medical team due to poor nutritional intake initially but later improved and was eating well. Patient was admitted to a locked, inpatient psychiatric unit. Appropriate precautions were in place throughout patient's hospital stay. Patient was seen and examined on the unit by psychiatry. Psychotropic medications were adjusted. There was no evidence of any suicidality or homicidality on the inpatient unit although had endorsed this initially which decreased throughout the admission and denied any suicidal ideations toward end of admission. Patient's mood improved with the benefit of psychopharmacologic treatment and had no behavioral disturbance since admission. Counselor has arranged for follow up appointments for continuity of care. On the day of discharge: Patient seen and examined; chart reviewed. Case discussed with nurse and counselor. No behavioral issues overnight. On my examination today, the patient is agreeable to a discharge to an assisted living residence. He denies any suicidal or homicidal ideation, intent or plan on direct questioning and contracts for safety. I can elicit no mood symptoms. He denies any audiovisual hallucinations. No delusional material verbalized today. Denies any side effects from medications and has an understanding of medication regimen and indication. No physical complaints. Suicide and violence risk assessment on day of discharge both suggest lower imminent risk, and the patient 's level of function is adequate for planned level of outpatient care. Patient has maximized benefit from this inpatient psychiatric hospital stay and will be discharged with follow-up as arranged by counselor. Patient advised to return to psychiatric emergency room for any concerning psychiatric symptoms. Patient agrees with plan. - Discharge Discharge Date: 06/21/18 - Discharge Diagnosis (1) Major depressive disorder Code(s): F32.9 - Major depressive disorder, single episode, unspecified Status : Acute Discharge Disposition: Assisted Living Facility - Discharge Instructions Discharge Diet: Heart Healthy Diet Activities You Can Perform: Regular- No Restrictions - Discharge Time > 30 minutes Mental Status Examination Appearance: Appropriate Consciousness: Alert Orientation: Person, Place Motor Activity: Other (Lying in bed) Speech: Unremarkable Language: Adequate Fund of Knowledge: Adequate Attention and Concentration: Adequate Memory: Impaired Mood: Other ("ok") Affect: Appropriate Thought Process & Associations: Intact Thought Content: Appropriate Hallucination Type: None Delusion Type: Paranoid (minimal) Suicidal Ideation: No Suicidal Plan: No Suicidal Intention: No Homicidal Ideation: No Homicidal Plan: No Homicidal Intention: No Insight: Fair (improving) Judgment: Impulsive Discharge/Advance Care Plan - Results Vital Signs: Last Vital Signs Temp 98.3 F 06/21/18 06:29 Pulse 74 06/21/18 06:29 Resp 18 06/21/18 06:29 BP 154/73 H 06/21/18 06:29 Pulse Ox 94 L 06/21/18 06:29 Lab Results: Laboratory Results Hemoglobin A1c 6.4 % (4.3-6.0) H 06/01/18 06:25 Triglycerides 107 mg/dL (42-150) 06/01/18 06:25 Cholesterol 139 mg/dL (120-200) 06/01/18 06:25 LDL Cholesterol, Calc 71 mg/dL (0-99) 06/01/18 06:25 HDL Cholesterol 46.5 mg/dL (40.0-60.0) 06/01/18 06:25 TSH 2.010 uIU/mL (0.358-3.740) 05/30/18 17:17 Summary of Procedures: none Imaging: ITS Impressions Head CT 05/31/18 16:11 CONCLUSION: 1. Right-sided PRESS SMITH HELPER shunt with the tip in the left lateral ventricle. Mild ventricular prominence. I have no priors to assess for interval change, however. 2. Chronic changes with moderately severe periventricular small vessel ischemic demyelination. Probable punctate old lacunar type infarcts in the basal ganglia bilaterally. Pending Results: None - Medications Number of antipsychotic medications at discharge: 1 - Discharge Care Plan Goals to Promote Your Health: * To prevent worsening of your condition and complications * To maintain your health at the optimal level Directions to Meet Your Goals: Take your medications as prescribed Follow your dietary instruction Follow activity as directed Keep your appointments as scheduled Take your immunizations and boosters as scheduled If your symptoms worsen call your PCP, if no PCP go to Urgent Care Center or Emergency Room For 14/06 questions related to your inpatient stay or results of tests pending at discharge, please contact Dr. Dillan Morse MD at Smoking is Dangerous to Your Health. Avoid second hand smoking (1) Major depressive disorder Qualifiers: Major depression recurrence: recurrent Active/Remission status: currently active Major depression episode severity: severe Psychotic features: with psychotic features Qualified Code(s): F33.3 - Major depressive disorder, recurrent, severe with psychotic symptoms (1) Major depressive disorder Qualifiers: Major depression recurrence: recurrent Active/Remission status: currently active Major depression episode severity: severe Psychotic features: with psychotic features Qualified Code(s): F33.3 - Major depressive disorder, recurrent, severe with psychotic symptoms
== END 2018-06-21 15:00 ==
LOC: NEPD 17:03 → NEDA 05-31 15:39 → H250 05-31 18:15 → H4EA 06-02 12:14
PROVIDERS: ADMIT Student in an Organized Health Care Education/Training Program; ATTEND Student in an Organized Health Care Education/Training Program
DX: Z87.891 Personal history of nicotine dependence; Z98.2 Presence of cerebrospinal fluid drainage device; E78.5 Hyperlipidemia, unspecified; F03.90 Unspecified dementia, unspecified severity, without behavioral disturbance, psychotic disturbance, mood disturbance, and anxiety; Z88.1 Allergy status to other antibiotic agents; Z91.14 Patient's other noncompliance with medication regimen; R45.851 Suicidal ideations; F41.9 Anxiety disorder, unspecified; G37.8 Other specified demyelinating diseases of central nervous system; R40.0 Somnolence; Z79.84 Long term (current) use of oral hypoglycemic drugs; F33.3 Major depressive disorder, recurrent, severe with psychotic symptoms; E11.9 Type 2 diabetes mellitus without complications; I10 Essential (primary) hypertension